=== PATIENT | male | born 1940 | race Caucasian/White ===

== ENCOUNTER 2019-10-21 08:40 | Outpatient (CLI) | payer MEDICARE, SELFPAY ==
--- NOTE | ~2019-10-21 | CT_ITS ---
EXAMINATION: CT chest abdomen pelvis w con DATE: 10/21/2019 09:39 INDICATION: Abnormal weight loss. TECHNIQUE: Computed tomography (CT) of the chest, abdomen, and pelvis was performed with 100 Omnipaqu e 350 intravenous contrast. Automated exposure control and iterative reconstruction technique were em ployed. The dose-length product was 474.09 mGy-cm. COMPARISON: CT abdomen and pelvis 03/12/2018, chest CT 07/23/2012 FINDINGS: CHEST CT: The lungs demonstrate mild atelectasis. Calcified right lung nodules and calcified right hilar lymph nodes are consistent with old granulomatous disease. No pleural effusion. The heart size is normal. T here are coronary artery calcifications. No pericardial effusion. There is mild thoracic spondylosis. There is mild chronic height loss of multiple thoracic vertebral bodies. ABDOMEN/PELVIS CT: There is a 10 mm cyst in the liver. Calcifications in the spleen are consistent with old granulomatou s disease. The gallbladder, pancreas, and adrenal glands are normal. There is cortical thinning of th e kidneys. There is a 4 mm cyst in right kidney. The prostate is moderately enlarged. There are no di lated loops of bowel. The appendix is normal. There is a filter in the infrarenal inferior vena cava. There are no pathologically enlarged lymph nodes. There is no free intraperitoneal fluid. There is l umbar levoscoliosis and severe spondylosis. IMPRESSION: 1. No evidence of malignancy. Reviewed, dictated and finalized at location A.
[2019-10-21 09:22] LABS: Estimated Glomerular Filt Rate > 60
== END 2019-10-21 08:41 | disposition home or self-care (01) ==
PROVIDERS: PCP Family Medicine; Visit Provider Family Medicine
DX: R63.4 Abnormal weight loss (principal); J98.11 Atelectasis
CPT/HCPCS: 36415; 71260; 74177; Q9967

== ENCOUNTER → 2020-10-16 14:07 | Outpatient (CLI) | payer MEDICARE, SELFPAY ==
--- NOTE | ~2020-10-16 | CT_ITS ---
EXAMINATION: CT wrist RT wo con DATE: 10/16/2020 14:36 INDICATION: Scaphoid fracture TECHNIQUE: High resolution computed tomography (CT) of the right wrist was performed without intraven ous contrast. Additional sagittal and coronal reconstructions were performed. Automated exposure cont rol and iterative reconstruction technique were employed. The dose-length product was 79.16 mGy-cm. COMPARISON: None FINDINGS: Alignment is normal. No fracture. There are prominent scattered dystrophic calcifications along the w rist joint and in the soft tissues at the volar aspect of the carpus. There are scattered erosions mo st prominent along the volar margin of the lunate, at the volar-proximal margin of the trapezium and at the head of the second metacarpal which along with the dystrophic calcifications suggesting possib ility of a crystalline deposition diseases such as gout. Severe osteoarthritis at the third metacarpo phalangeal joint and moderate osteoarthritis at the second and fourth metacarpophalangeal joints. Mil d osteoarthritis at the distal radioulnar, midcarpal, triscaphe, first carpometacarpal and first and fifth metacarpophalangeal joints. IMPRESSION: 1. No fractures. 2. Polyarticular osteoarthritis, moderate to severe at the third-fourth metacarpophalangeal joints. 3. Scattered dystrophic calcification is at the wrist and carpus with a few scattered erosions which could be seen in the setting of a crystalline deposition diseases such as gout. Reviewed, dictated and finalized at location A. IMPRESSION: 1. No fractures. 2. Polyarticular osteoarthritis, moderate to severe at the third-fourth metacar pophalangeal joints. 3. Scattered dystrophic calcification is at the wrist and carpus with a few sca ttered erosions which could be seen in the setting of a crystalline deposition diseases such as gout.
== END ==
PROVIDERS: PCP Family Medicine; Visit Provider Orthopaedic Surgery Hand Surgery
DX: M19.031 Primary osteoarthritis, right wrist (principal); M25.831 Other specified joint disorders, right wrist
CPT/HCPCS: 73200

== ENCOUNTER → 2021-02-27 09:23 | Outpatient (CLI) | payer MEDICARE, SELFPAY ==
--- NOTE | ~2021-02-27 | CT_ITS ---
EXAMINATION: CT cervical spine wo con DATE: 02/27/2021 09:49 INDICATION: Neck pain. TECHNIQUE: Computed tomography (CT) of the cervical spine was performed without intravenous contrast. Automated exposure control and iterative reconstruction technique were employed. The dose-length pro duct was 239.06 mGy-cm. COMPARISON: CT cervical spine 08/13/2012 FINDINGS: There are changes of right occipital craniectomy with surgical clips. There is 2 mm retroli sthesis of C4 on C5, C5 on C6, and C6 on C7. Vertebral body heights are normal. There is mildly decre ased disc height at C2-C3, moderately decreased disc height at C3-C4, and severely decreased disc hei ght from C4-C5 through C7-T1 with endplate remodeling. The following disc levels are specifically dis cussed: C2-C3: There is mild bilateral uncovertebral joint osteoarthritis. There is mild bilateral facet join t osteoarthritis. There is no neural foraminal stenosis. There is no central canal stenosis. C3-C4: There is severe right and moderate left uncovertebral joint osteoarthritis. There is severe bi lateral facet joint osteoarthritis. There is mild bilateral neural foraminal stenosis. There is mild central canal stenosis. C4-C5: There is severe bilateral uncovertebral joint osteoarthritis. There is moderate and severe lef t facet joint osteoarthritis. There is moderate bilateral neural foraminal stenosis. There is mild ce ntral canal stenosis. C5-C6: There is severe bilateral uncovertebral joint osteoarthritis. There is moderate bilateral face t joint osteoarthritis. There is moderate right and mild left neural foraminal stenosis. There is mil d central canal stenosis. C6-C7: There is severe bilateral uncovertebral joint osteoarthritis. There is severe bilateral facet joint osteoarthritis. There is mild bilateral neural foraminal stenosis. There is mild central canal stenosis. C7-T1: There is severe bilateral uncovertebral joint osteoarthritis. There is severe bilateral facet joint osteoarthritis. There is mild bilateral neural foraminal stenosis. There is mild central canal stenosis. IMPRESSION: 1. Severe cervical spondylosis, worsened from 08/13/2012. Reviewed, dictated and finalized at location A.
--- NOTE | ~2021-02-27 | CT_ITS ---
EXAMINATION: CT lumbar spine [facility] EXAM DATE: 02/27/2021 09:49 INDICATION: M54.50 - Low back pain, unspecified. TECHNIQUE: Spiral CT of the lumbar spine was performed without contrast. Axial, coronal and sagittal images lumbar spine were reviewed. The dose-length product (DLP) for this examination was 778.25 mG y-cm. The exposure was tailored according to patient size (auto mA exposure control), and iterative reconstruction (ASIR) was used as additional dose reduction technique. There is no prior study for comparison. FINDINGS: IVC filter. Mild to moderate lumbar levoscoliosis. Moderate to severe disc disease at all l umbar levels. Mild compression fracture superior endplate of L1 and L4 which appear chronic. Mild dif fuse loss of other vertebral body height. The vertebral bodies are aligned in the AP dimension. No ev idence of sacral insufficiency fracture. Scattered sigmoid colonic diverticulosis. Level by level evaluation: T12-L1: There is a mild diffuse disc bulge. Facet arthropathy: Mild. Neural foraminal stenosis: No stenosis. Central canal stenosis: No stenosis. L1-L2: There is a mild to moderate diffuse disc bulge. Facet arthropathy: Moderate. Neural foraminal stenosis: Mild to moderate bilateral. Central canal stenosis: Mild. L2-L3: There is a moderate diffuse disc bulge. Facet arthropathy: Moderate. Neural foraminal stenosis: Mild to moderate bilateral. Central canal stenosis: Moderate. L3-L4: There is a moderate diffuse disc bulge. Facet arthropathy: Moderate to severe. Neural foraminal stenosis: Moderate right, mild left. Central canal stenosis: Moderate. L4-L5: There is a mild to moderate diffuse disc bulge. Facet arthropathy: Moderate to severe. Neural foraminal stenosis: Mild to moderate right, mild left. Central canal stenosis: Mild to moderate. L5-S1: There is a mild to moderate diffuse disc bulge. Facet arthropathy: Mild to moderate. Neural foraminal stenosis: Moderate to severe left, mild right. Central canal stenosis: Mild. IMPRESSION: 1. Moderate to severe lumbar spondylosis. 2. Mild to moderate levoscoliosis. 3. Mild L1, L4 chronic appearing compression fractures. Reviewed, dictated and finalized at location B.
== END ==
PROVIDERS: PCP Family Medicine; Visit Provider Family Medicine
DX: M54.50 Low back pain, unspecified (principal); M25.50 Pain in unspecified joint; M47.816 Spondylosis without myelopathy or radiculopathy, lumbar region; M41.86 Other forms of scoliosis, lumbar region; M48.56XA Collapsed vertebra, not elsewhere classified, lumbar region, initial encounter for fracture; M47.812 Spondylosis without myelopathy or radiculopathy, cervical region
CPT/HCPCS: 72125; 72131

== ENCOUNTER 2021-03-13 12:50 | Outpatient (CLI) | payer MEDICARE, SELFPAY ==
--- NOTE | ~2021-03-13 | US_ITS ---
EXAMINATION: US venous doppler LE RT DATE: 03/13/2021 13:30 INDICATION: Right calf pain and swelling. TECHNIQUE: Grayscale ultrasound images without and with compression and Doppler ultrasound images of the right lower extremity veins were obtained. COMPARISON: Ultrasound 03/12/2012 FINDINGS: The visualized portions of right common femoral vein, profunda (deep) femoral vein, peroneal veins, p osterior tibial veins, and greater saphenous vein outflow are patent. There is echogenic peripheral n onocclusive thrombus in right femoral vein and popliteal vein. IMPRESSION: 1. Deep vein thrombosis involving right femoral vein and popliteal vein, which may be chronic. Reviewed, dictated and finalized at location A. [employer]
== END 2021-03-13 12:51 | disposition home or self-care (01) ==
LOC: ANHIMG 12:56
PROVIDERS: PCP Family Medicine; Visit Provider Orthopaedic Surgery
DX: I82.409 Acute embolism and thrombosis of unspecified deep veins of unspecified lower extremity (principal); I82.431 Acute embolism and thrombosis of right popliteal vein; I82.411 Acute embolism and thrombosis of right femoral vein
CPT/HCPCS: 93971

== ENCOUNTER → 2021-08-16 12:21 | Outpatient (CLI) | payer MEDICARE, SELFPAY ==
--- NOTE | ~2021-08-16 | XR_ITS ---
XR ankle LT min 3V DATE: 08/16/2021 13:05 INDICATION: Left ankle effusion TECHNIQUE: 4 views COMPARISON: None FINDINGS: There is generalized soft tissue swelling of the left ankle. There are 2 screws extending anteroposteriorly through the distal tibia. Diffuse osteopenia. There is chronic organized periosteal reaction along the anterior distal tibial shaft. No fracture or dislocation of the ankle or disruption of the ankle mortise is evident. Plantar calcaneal enthesopathy. Arterial calcification of the lower leg and ankle. IMPRESSION: Postoperative change of distal tibia Osteopenia Generalized soft tissue swelling Plantar calcaneal enthesopathy Reviewed, dictated and finalized at location A.
== END ==
PROVIDERS: Visit Provider Family Medicine
DX: M79.89 Other specified soft tissue disorders (principal); M77.32 Calcaneal spur, left foot; M85.862 Other specified disorders of bone density and structure, left lower leg
CPT/HCPCS: 73610

== ENCOUNTER 2021-12-05 13:50 | Outpatient (RCR) | payer MEDICARE, SELFPAY ==
[2021-12-05 14:07] VITALS: BP 124/62; PULSE 60; RESP 20; TEMP 36.4; O2SAT 98
[2021-12-05] MEDS: ACETAMINOPHEN 325 MG TABLET 650 MG PO (14:11)
[2021-12-05] MEDS: FAMOTIDINE 20 MG TABLET PO (14:11)
[2021-12-05] MEDS: diphenhydrAMINE HCl CAP 25 MG CAPSULE PO (14:11)
[2021-12-05] MEDS: BEBTELOVIMAB 175 MG/2 ML VIAL IV PUSH (14:46)
[2021-12-05 15:27] VITALS: BP 120/60; PULSE 70; O2SAT 99
== END 2021-12-05 16:00 ==
LOC: AMCINF 13:50
PROVIDERS: PCP Family Medicine; Visit Provider Internal Medicine Hematology & Oncology
DX: U07.1 COVID-19 (principal); I10 Essential (primary) hypertension; I25.10 Atherosclerotic heart disease of native coronary artery without angina pectoris; J44.9 Chronic obstructive pulmonary disease, unspecified; N18.9 Chronic kidney disease, unspecified
CPT/HCPCS: A9270; M0222; Q0222

== ENCOUNTER 2021-12-23 21:29 | Emergency (ER) | payer MEDICARE, SELFPAY ==
[2021-12-23] VITALS (8 sets, daily range): BP systolic 107–126; BP diastolic 59–68; PULSE 65–85; RESP 15–22; TEMP 37.2; O2SAT 98–100
--- NOTE | ~2021-12-23 | XR_ITS ---
EXAMINATION: XR chest 1V portable DATE: 12/23/2021 22:53 INDICATION: Shortness of breath. Cough. TECHNIQUE: A single frontal view of the chest was obtained. COMPARISON: Chest 2 views 05/21/19, chest CT 10/21/2019 FINDINGS: There is new mild elevation of left hemidiaphragm. There are interstitial opacities in the lower lung zones. No pleural effusion or pneumothorax. The heart size is normal. IMPRESSION: 1. Stable interstitial opacities in the lower lung zones, likely mild chronic interstitial lung disea se. Reviewed, dictated and finalized at location A. IMPRESSION: 1. Stable interstitial opacities in the lower lung zones, likely mild chronic i nterstitial lung disease.
[2021-12-23 21:53] LABS: Basophils Percent Auto 0.4 % (0.2-1.2); Eosinophils Absolute Auto 0.3 K/mm3 (0-0.3); Eosinophils Percent Auto 3.7 % (0-4.4); Hematocrit 36.5 % (42.0-52.0); Hemoglobin 11.4 g/dL (14.0-18.0); Immature Granulocyte Absolute 0.02 K/mm3 (0.00-0.031); Immature Granulocyte Percent A 0.2 % (0-0.5); Lymphocytes Absolute Auto 1.22 K/mm3 (0.9-3.2); Lymphocytes Percent Auto 13.6 % (18.3-44.2); Mean Corpuscular HGB Conc 31.2 g/dl (32-36); Mean Corpuscular Hemoglobin 29.7 pg (26-34); Mean Corpuscular Volume 95.1 fl (80-100); Mean Platelet Volume 11.7 fl (7.4-10.4); Monocytes Percent Auto 10.9 % (2.6-8.5); Neutrophils Absolute Auto 6.4 K/mm3 (1.3-6.7); Neutrophils Percent Auto 71.2 % (45.5-73.1); Platelet Count Result 170 k/mm3 (150-375); Red Blood Count 3.84 M/mm3 (4.6-6.20); Red Cell Distribution Width 14.3 % (11.5-14.5)
[2021-12-23 22:02] LABS: Alanine Aminotransferase 17 U/L (6-50); Albumin Level 4.2 g/dL (3.5-5.1); Alkaline Phosphatase 81 U/L (38-126); Anion Gap 8 mmol/L (8-16); Aspartate Amino Transferase 38 U/L (17-59); Bilirubin,Total 1.5 mg/dL (0.2-1.3); Blood Urea Nitrogen 20 mg/dL (9-20); Calcium 9.1 mg/dL (8.4-10.2); Carbon Dioxide 29 mmol/L (22-30); Chloride 98 mmol/L (98-107); Estimated CRCL calculation 48 ml/min; Estimated Glomerular Filt Rate > 60; Glucose 98 mg/dL (65-110); Potassium 4.9 mmol/L (3.4-5.0); Sodium 135 mmol/L (137-145)
--- NOTE | 2021-12-23 22:55 | PC.NURSE ---
Pt reports diagnosed with COVID 12/03, reports was feeling better except for a sore throat. Pt reports today it feels like he has phlegm in throat he cannot cough out. Pt is A/O x 4, no distress, skin pwd
--- NOTE | 2021-12-23 23:41 | ED.URI ---
HPI - URI/Sore Throat General Chief Complaint: Upper Respiratory Infection Stated Complaint: SOB, congestion Time Seen by Provider: 12/23/21 22:45 History of Present Illness HPI Narrative: 81-year-old male presents the emergency room complaints of a sore throat that he has had for 2 days. Patient states he feels like he is and is unable to clear his throat. Denies productive cough shortness of breath difficulty breathing or chest pain. Patient denies fevers. Patient states he was recently diagnosed with COVID. Was seen in his primary care's office earlier this week and was given a course of amoxicillin. Patient states he is not getting any better. Related Data Home Medications Medication Instructions Recorded Confirmed atorvastatin 80 mg tablet 80 mg PO DAILY 04/21/19 12/05/21 isosorbide mononitrate 60 mg 60 mg PO DAILY 04/21/19 12/05/21 tablet,extended release 24 hr [id number]-SR 200 mcg-vit K 15 1 tablet PO DAILY 04/21/19 12/05/21 mcg-lycope 150 uip-hkdyri-ugnr tablet (Ocuvite Eye Plus Multi) potassium chloride 20 mEq See Rx Instructions .Route 05/21/19 12/05/21 tablet,extended release .COMPLEX PRN retention metoprolol tartrate 25 mg tablet 12.5 mg PO BID 05/24/19 12/05/21 diphenhydramine 25 1 tablet PO QHS PRN Sleep 08/16/21 12/05/21 mg-acetaminophen 500 mg tablet (Tylenol PM Extra Strength) Allergies Allergy/AdvReac Type Severity Reaction Status Date / Time anesthesia--cholinester AdvReac Severe Unknown Uncoded 12/14/21 09:41 deficiency Review of Systems Review of Systems: CONSTITUTIONAL: Denies fever, chills, or sweats. EYES: Denies visual changes, redness, or discharge. ENT: Reports sore throat CARDIOVASCULAR: Denies chest pain, palpitations, or edema. RESPIRATORY: Denies cough or dyspnea. GASTROINTESTINAL: Denies abdominal pain, nausea, vomiting, or diarrhea. GENITOURINARY: Denies dysuria or hematuria. SKIN: Denies rash or itching. MUSCULOSKELETAL: Denies back pain, joint pain, or myalgia. NEUROLOGIC: Denies headache, numbness, dizziness, or weakness. PSYCHIATRIC: Denies anxiety or depression. PMFSH Past Medical History Medical History Anemia Anemia of chronic disease Ankle fracture, left Arthritis Atherosclerotic heart disease of [place] coronary artery with other forms of angina pectoris Atrial fibrillation AVM (arteriovenous malformation) brain B12 deficiency (Unknown) Basal cell carcinoma (BCC) of face Bilateral cataracts Brown recluse spider bite Right lower extremity CAD (coronary artery disease) History of mid Left anterior descending stent in the past, RCA stent in 2018. Cholinesterase deficiency Chronic back pain Chronic combined systolic and diastolic congestive heart failure Chronic interstitial lung disease COPD (chronic obstructive pulmonary disease) Depression Diverticulosis DVT (deep venous thrombosis) Erectile dysfunction Erectile dysfunction Esophageal dilatation GERD (gastroesophageal reflux disease) GI bleed Hiatal hernia HTN (hypertension) Hyperlipidemia Iron deficiency anemia due to chronic blood loss Ischemic cardiomyopathy Lymphedema DARIUSZ (obstructive sleep apnea) Phlebitis Physical deconditioning Post-phlebitic dermatosis of both lower extremities Psychomotor agitation PUD (peptic ulcer disease) Right knee DJD Surgical History Surgical History H/O bilateral cataract extraction H/O craniotomy AV malformation repair H/O repair of rotator cuff Bilateral H/O skin graft IVleft anterior foot History of esophagogastroduodenoscopy (EGD) History of open reduction and internal fixation (ORIF) procedure left ankle Hx of cardiac cath Hx of tonsillectomy S/P IVC filter S/P right knee arthroscopy Status post right knee replacement Stented coronary artery X2 Family History Family History (Reviewed 12/23/21 @ 23:43 by Donte Park, A
[2021-12-23] MEDS: BELLADONNA ALK/PHENOB ELIX 10 ML, MAG HYDROX/ALUMINUM HYD/SIMETH 30 ML, LIDOCAINE HCL 2... PO (23:51)
[2021-12-23] MEDS: DEXAMETHASONE SOD PHOS INJ 4 MG/ML VIAL IV PUSH (23:53)
== END 2021-12-24 00:04 | disposition home or self-care (01) ==
PROVIDERS: Emergency Provider Nurse Practitioner Family; PCP Family Medicine
DX: B08.5 Enteroviral vesicular pharyngitis (principal); Z87.891 Personal history of nicotine dependence; D64.9 Anemia, unspecified; M19.90 Unspecified osteoarthritis, unspecified site; I48.91 Unspecified atrial fibrillation; I25.10 Atherosclerotic heart disease of native coronary artery without angina pectoris; J44.9 Chronic obstructive pulmonary disease, unspecified; K57.90 Diverticulosis of intestine, part unspecified, without perforation or abscess without bleeding; Z86.718 Personal history of other venous thrombosis and embolism; K21.9 Gastro-esophageal reflux disease without esophagitis; I10 Essential (primary) hypertension; Z86.16 Personal history of COVID-19
CPT/HCPCS: 36415; 71045; 80053; 85025; 96374; 99284; A9270; J1100

== ENCOUNTER 2022-07-18 10:36 | Emergency (ER) | payer MEDICARE, SELFPAY ==
--- NOTE | ~2022-07-18 | CT_ITS ---
Non-contrast Head CT History: Head injury COMPARISON: 03/11/2007 Technique: Axial non-contrast imaging of the brain was performed. Dose reduction technique was used on this scan by utilizing automated exposure control and iterative reconstruction technique. The dose -length product (DLP) was 605.33 mGy-cm. Findings: There is no evidence of intracranial hemorrhage, mass lesion, or acute infarct. Brain par enchyma appears normal. The ventricles and subarachnoid spaces are normal in size. Stable right alex etal craniotomy/chronic changes. Stable metallic densities in the region of the right falx tentorium. . The visualized paranasal sinuses and mastoid air cells are clear. Impression: No acute abnormality. Stable presumed postsurgical and/or posttraumatic changes, predominantly in the right parietal region . Reviewed, dictated and finalized at [facility]. Impression: No acute abnormality. Stable presumed postsurgical and/or posttraumatic changes, predominantly in the right parietal region.
--- NOTE | ~2022-07-18 | XR_ITS ---
Clinical Indication: Injury PA and lateral views of the chest: Comparison: 12/23/2021 Findings: Possible mild central pulmonary venous congestive change. Probable minimal left basilar sca rring, unchanged. No acute consolidation evident. Cardiomediastinal silhouette is within normal limi ts. Bones and soft tissues are unremarkable. Impression: Probable mild central congestive changes and chronic left basilar scarring. Reviewed, dictated and finalized at location . Impression: Probable mild central congestive changes and chronic left basilar scarring.
--- NOTE | ~2022-07-18 | XR_ITS ---
Left Shoulder Technique: AP and scapular Y views were obtained. Clinical History: Pain Findings: No acute fracture seen. There is widening of the acromio clavicular distance, stable as com pared to prior chest x-ray dated 12/23/2021. There is minimal glenohumeral joint degenerative change. Soft tissues are unremarkable. Impression: Chronic widening of the cortical clavicular distance. This may be postoperative in nature or related to remote trauma. Minimal degenerative change of the glenohumeral joint. Reviewed, dictated and finalized at location . Impression: Chronic widening of the cortical clavicular distance. This may be postoperative in nature or related to remote trauma. Minimal degenerative change of the glenohumeral joint.
--- NOTE | 2022-07-18 10:52 | ED.HA ---
HPI - Headache General Chief Complaint: Headache Stated Complaint: fall, lightheaded Time Seen by Provider: 07/18/22 10:51 Source: patient Mode of arrival: ambulatory Limitations: no limitations History of Present Illness HPI Narrative: Patient is an 82-year-old male with a history of hypertension, coronary artery disease, sick sinus syndrome, paroxysmal atrial fibrillation on chronic anticoagulation, who is presenting to the emergency department for evaluation of mild headache following a ground-level fall 5 days ago. Patient states that he lost his balance while setting down a heavy box that he was moving outside of his camper. Patient states that he fell forward, striking the right side of his head on the box and then was able to roll to the ground. Patient denies loss of conscious. Patient reports very mild headache for which she has not taken any medication for any significant amount of bruising around his right eye. No associated focal weakness or numbness. No facial droop. Patient has not noticed any speech changes but patient's believes he is not speaking clearly. Patient denies any vision changes, nausea, vomiting. Patient does report some mild left shoulder pain following the fall without bruising, redness. He has been able to fully range the left shoulder. Patient has been compliant with his anticoagulation. Denies fever, chills, chest or abdominal pain. Related Data Home Medications Medication Instructions Recorded Confirmed isosorbide mononitrate 60 mg 60 mg PO DAILY 04/21/19 12/28/21 tablet,extended release 24 hr potassium chloride 20 mEq See Rx Instructions .Route 05/21/19 12/28/21 tablet,extended release .COMPLEX PRN retention metoprolol tartrate 25 mg tablet 12.5 mg PO BID 05/24/19 12/28/21 diphenhydramine 25 1 tablet PO QHS PRN Sleep 08/16/21 12/28/21 mg-acetaminophen 500 mg tablet (Tylenol PM Extra Strength) Allergies Allergy/AdvReac Type Severity Reaction Status Date / Time anesthesia--cholinester AdvReac Severe Unknown Uncoded 05/30/22 14:22 deficiency Review of Systems Review of Systems: CONSTITUTIONAL: Denies fever, chills, or sweats. EYES: Denies visual changes, redness, or discharge. ENT: Denies rhinorrhea, congestion, sore throat, or otalgia. CARDIOVASCULAR: Denies chest pain, palpitations, or edema. RESPIRATORY: Denies cough or dyspnea. GASTROINTESTINAL: Denies abdominal pain, nausea, vomiting, or diarrhea. GENITOURINARY: Denies dysuria or hematuria. SKIN: Denies rash or itching. MUSCULOSKELETAL: Denies back pain, joint pain, or myalgia. NEUROLOGIC: Patient reports mild right-sided headache pain, denies focal numbness or weakness, denies speech changes PMFSH Past Medical History Medical History Anemia Anemia of chronic disease Ankle fracture, left Arthritis Atherosclerotic heart disease of [place] coronary artery with other forms of angina pectoris Atrial fibrillation AVM (arteriovenous malformation) brain B12 deficiency (Unknown) Basal cell carcinoma (BCC) of face Bilateral cataracts Brown recluse spider bite Right lower extremity CAD (coronary artery disease) History of mid Left anterior descending stent in the past, RCA stent in 2018. Cholinesterase deficiency Chronic back pain Chronic combined systolic and diastolic congestive heart failure Chronic interstitial lung disease COPD (chronic obstructive pulmonary disease) Depression Diverticulosis DVT (deep venous thrombosis) Erectile dysfunction Erectile dysfunction Esophageal dilatation GERD (gastroesophageal reflux disease) GI bleed Hiatal hernia HTN (hypertension) Hyperlipidemia Iron deficiency anemia due to chronic blood loss Ischemic cardiomyopathy Lymphedema DARIUSZ (obstructive sleep apnea) Phlebitis Physical deconditioning Post-phlebitic dermatosis of both lower extremities Psychomotor agitation PUD (peptic ulcer disease) Right knee DJD Surg
[2022-07-18 10:57] VITALS: BP 126/66; PULSE 60; RESP 16; TEMP 36.8; O2SAT 100
--- NOTE | 2022-07-18 11:12 | ECG_ITS ---
Measurements Intervals [place] Rate: 53 P: NE: 0 QRS: -71 QRSD: 126 T: -7 QT: 479 QTc: 454 Interpretive Statements ATRIAL FLUTTER/TACHYCARDIA WITH SLOW VENTRICULAR RESPONSE RIGHT BUNDLE BRANCH BLOCK CONSIDER ANTERIOR INFARCT, AGE INDETERMINATE INFERIOR INFARCT, AGE INDETERMINATE BASELINE ARTIFACT- I, II ABNORMAL ECG COMPARED TO ECG 05/22/2019 03:50:00 ATRIAL FLUTTER/TACHYCARDIA NOW PRESENT MYOCARDIAL INFARCT FINDING NOW PRESENT Electronically Signed On 07-18-2022 12:31:32 CDT by Colby Nova D.O.
[2022-07-18] MEDS: SODIUM CHLORIDE 0.9% IV 500 ML 999 ML IV CONT (11:52)
[2022-07-18] MEDS: TETANUS,DIPHTHERIA,AC PERTUSSIS ADULT (0.5 ML) BOOSTRIX IM (11:53)
[2022-07-18 12:04] VITALS: BP 120/64; PULSE 58; RESP 16; O2SAT 100
[2022-07-18 12:07] LABS: Basophils Percent Auto 0.6 % (0.2-1.2); Eosinophils Absolute Auto 0.4 K/mm3 (0-0.3); Eosinophils Percent Auto 6.8 % (0-4.4); Hemoglobin 11.5 g/dL (14.0-18.0); Immature Granulocyte Absolute 0.01 K/mm3 (0.00-0.031); Immature Granulocyte Percent A 0.2 % (0-0.5); Lymphocytes Absolute Auto 1.17 K/mm3 (0.9-3.2); Lymphocytes Percent Auto 21.5 % (18.3-44.2); Mean Corpuscular HGB Conc 31.1 g/dl (32-36); Mean Corpuscular Hemoglobin 29.3 pg (26-34); Mean Corpuscular Volume 94.1 fl (80-100); Mean Platelet Volume 11.4 fl (7.4-10.4); Monocytes Absolute Auto 0.7 K/mm3 (0.1-0.6); Monocytes Percent Auto 11.9 % (2.6-8.5); Neutrophils Absolute Auto 3.2 K/mm3 (1.3-6.7); Platelet Count Result 180 k/mm3 (150-375); Red Blood Count 3.93 M/mm3 (4.6-6.20); Red Cell Distribution Width 14.4 % (11.5-14.5); White Blood Count 5.5 K/mm3 (4.5-10.0)
[2022-07-18 12:10] LABS: INR 2.4; Prothrombin Time 25.7 Seconds (11.1-14.7)
[2022-07-18 12:11] LABS: Partial Thromboplastin Time 49.4 SECONDS (22.3-36.8)
[2022-07-18 12:16] LABS: Anion Gap 5 mmol/L (8-16); Blood Urea Nitrogen 14 mg/dL (9-20); Calcium 9.1 mg/dL (8.4-10.2); Carbon Dioxide 31 mmol/L (22-30); Chloride 99 mmol/L (98-107); Estimated CRCL calculation 49 ml/min; Estimated Glomerular Filt Rate > 60; Glucose 86 mg/dL (65-110); Potassium 4.1 mmol/L (3.4-5.0); Sodium 135 mmol/L (137-145)
[2022-07-18 12:27] LABS: Troponin I 0.019 ng/mL (0.000-0.034)
[2022-07-18 13:02] VITALS: BP 110/84; PULSE 64; RESP 16; O2SAT 97
== END 2022-07-18 13:09 | disposition home or self-care (01) ==
PROVIDERS: Emergency Provider Emergency Medicine; PCP Family Medicine
DX: G44.309 Post-traumatic headache, unspecified, not intractable (principal); F07.81 Postconcussional syndrome; S05.11XA Contusion of eyeball and orbital tissues, right eye, initial encounter; Z23 Encounter for immunization; I48.0 Paroxysmal atrial fibrillation; I25.118 Atherosclerotic heart disease of native coronary artery with other forms of angina pectoris; I11.0 Hypertensive heart disease with heart failure; I50.42 Chronic combined systolic (congestive) and diastolic (congestive) heart failure; I25.5 Ischemic cardiomyopathy; I49.5 Sick sinus syndrome; D63.8 Anemia in other chronic diseases classified elsewhere; E53.8 Deficiency of other specified B group vitamins; J44.9 Chronic obstructive pulmonary disease, unspecified; K21.9 Gastro-esophageal reflux disease without esophagitis; E78.5 Hyperlipidemia, unspecified; G47.33 Obstructive sleep apnea (adult) (pediatric); M17.11 Unilateral primary osteoarthritis, right knee; Z95.5 Presence of coronary angioplasty implant and graft; Z96.651 Presence of right artificial knee joint; Z85.828 Personal history of other malignant neoplasm of skin; Z86.718 Personal history of other venous thrombosis and embolism; Z87.11 Personal history of peptic ulcer disease; Z87.891 Personal history of nicotine dependence; Z98.42 Cataract extraction status, left eye; Z98.41 Cataract extraction status, right eye; Z79.01 Long term (current) use of anticoagulants; I48.92 Unspecified atrial flutter; R00.0 Tachycardia, unspecified; R94.31 Abnormal electrocardiogram [ECG] [EKG]; W18.39XA Other fall on same level, initial encounter
CPT/HCPCS: 36415; 70450; 71046; 73030; 80048; 84484; 85025; 85610; 85730; 90471; 90715; 93005; 96360; 99284; J7040

== ENCOUNTER 2023-01-08 07:59 | Observation (INO) | payer MEDICARE, SELFPAY ==
[2023-01-08] VITALS (23 sets, daily range): BP systolic 105–142; BP diastolic 61–80; PULSE 34–61; RESP 9–19; TEMP 36.2–36.9; O2SAT 95–100; BMI 24.7
--- NOTE | ~2023-01-08 | XR_ITS ---
EXAMINATION: XR chest 1V portable DATE: 01/08/2023 08:21 INDICATION: Bradycardia. Dizziness. TECHNIQUE: A single frontal view of the chest was obtained. COMPARISON: Chest 2 views 07/18/2022, chest CT 10/21/2019 FINDINGS: There are chronic interstitial opacities in the lower lung zones. No pleural effusion or pn eumothorax. The heart size is normal. IMPRESSION: 1. Mild chronic interstitial lung disease. Reviewed, dictated and finalized at location A.
--- NOTE | 2023-01-08 08:03 | ECG_ITS ---
Measurements Intervals [place] Rate: 77 P: ND: 0 QRS: -79 QRSD: 152 T: 45 QT: 436 QTc: 495 Interpretive Statements JUNCTIONAL RHYTHM VENTICULAR COUPLET AND FREQUENT VENTRICULAR PREMATURE COMPLEXES RIGHT BUNDLE BRANCH BLOCK LEFT ANTERIOR FASCICULAR BLOCK ABNORMAL ECG COMPARED TO ECG 07/18/2022 12:01:15 JUNCTIONAL RHYTHN NOW PRESENT Electronically Signed On 01-08-2023 12:43:57 CDT by Colby Nova D.O.
--- NOTE | 2023-01-08 08:10 | ED.ARRPALP ---
HPI - Arrhythmia/Palpitations General Chief Complaint: Arrhythmia/Palpitations Stated Complaint: IRREGULAR HEART RATE Time Seen by Provider: 01/08/23 08:00 History of Present Illness HPI narrative: This is an 82-year-old male, with history of A-fib on rivaroxaban, who presents emergency department from cardiac rehab for an episode of symptomatic bradycardia. The patient states he was riding the bike, when he felt palpitations and became lightheaded. On the monitor at the time, the patient had multiple long pauses with slowest heart rate in the 30s. He was brought to the emergency room for evaluation. Patient continues to complain of lightheadedness but denies chest pain. He has no other complaints at this time. He states he did not take his medications this morning. He states his Imdur was increased in dose 1 week ago. Related Data Home Medications Medication Instructions Recorded Confirmed isosorbide mononitrate 60 mg 60 mg PO DAILY 04/21/19 01/08/23 tablet,extended release 24 hr diphenhydramine 25 1 tablet PO QHS PRN Sleep 08/16/21 01/08/23 mg-acetaminophen 500 mg tablet (Tylenol PM Extra Strength) B Complex 1 tablet BYMOUTH DAILY 12/12/22 01/08/23 PreserVision AREDS 2 tab-cap BYMOUTH DAILY 12/12/22 01/08/23 cholecalciferol (vitamin D3) 50 50 mcg PO DAILY 12/12/22 01/08/23 mcg (2,000 unit) capsule (Vitamin D3) furosemide 20 mg tablet 20 mg PO DAILY 01/08/23 01/08/23 rivaroxaban 20 mg tablet (Xarelto) 20 mg PO QAM 01/08/23 01/08/23 triamcinolone acetonide 0.1 % 1 applic topical BID PRN dryness 01/08/23 01/08/23 topical cream Allergies Allergy/AdvReac Type Severity Reaction Status Date / Time anesthesia--cholinester AdvReac Severe Unknown Uncoded 01/08/23 13:35 deficiency Review of Systems Review of Systems: CONSTITUTIONAL: Denies fever, chills, or sweats. CARDIOVASCULAR: Palpitations denies chest pain, or edema. RESPIRATORY: Denies cough or dyspnea. GASTROINTESTINAL: Denies abdominal pain, nausea, vomiting, or diarrhea. GENITOURINARY: Denies dysuria or hematuria. SKIN: Denies rash or itching. MUSCULOSKELETAL: Denies back pain, joint pain, or myalgia. NEUROLOGIC: Lightheadedness denies headache, numbness, or weakness. PSYCHIATRIC: Denies anxiety or depression. 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 B12 deficiency (Unknown) Basal cell carcinoma (BCC) of face Bilateral cataracts CAD (coronary artery disease) History of mid Left anterior descending stent in the past, RCA stent in 2018. Cholinesterase deficiency Chronic back pain Chronic combined systolic and diastolic congestive heart failure Chronic interstitial lung disease COPD (chronic obstructive pulmonary disease) Depression Diverticulosis DVT (deep venous thrombosis) Erectile dysfunction Esophageal dilatation GERD (gastroesophageal reflux disease) GI bleed Hiatal hernia HTN (hypertension) Hyperlipidemia Ischemic cardiomyopathy Lymphedema DARIUSZ (obstructive sleep apnea) Physical deconditioning PUD (peptic ulcer disease) Right knee DJD Surgical History Surgical History (Updated 01/08/23 @ 18:53 by Lili Neumann, HOSPITAL CARRIER) H/O bilateral cataract extraction H/O craniotomy AV malformation repair H/O repair of rotator cuff Bilateral H/O skin graft IVleft anterior foot History of esophagogastroduodenoscopy (EGD) History of open reduction and internal fixation (ORIF) procedure left ankle History of radiofrequency ablation (RFA) procedure for cardiac arrhythmia Hx of cardiac cath Hx of tonsillectomy S/P IVC filter S/P right knee arthroscopy Status post right knee replacement Stented coronary artery X2 Family Hist
[2023-01-08 08:42] LABS: Basophils Percent Auto 0.7 % (0.2-1.2); Eosinophils Absolute Auto 0.3 K/mm3 (0-0.3); Eosinophils Percent Auto 5.7 % (0-4.4); Hematocrit 41.3 % (42.0-52.0); Hemoglobin 13.2 g/dL (14.0-18.0); Immature Granulocyte Absolute 0.01 K/mm3 (0.00-0.031); Immature Granulocyte Percent A 0.2 % (0-0.5); Lymphocytes Absolute Auto 0.88 K/mm3 (0.9-3.2); Lymphocytes Percent Auto 19.9 % (18.3-44.2); Mean Corpuscular Hemoglobin 30.8 pg (26-34); Mean Corpuscular Volume 96.3 fl (80-100); Monocytes Absolute Auto 0.6 K/mm3 (0.1-0.6); Monocytes Percent Auto 12.4 % (2.6-8.5); Neutrophils Absolute Auto 2.7 K/mm3 (1.3-6.7); Neutrophils Percent Auto 61.1 % (45.5-73.1); Platelet Count Result 171 k/mm3 (150-375); Red Blood Count 4.29 M/mm3 (4.6-6.20); Red Cell Distribution Width 13.9 % (11.5-14.5); White Blood Count 4.4 K/mm3 (4.5-10.0)
[2023-01-08] MEDS: CALCIUM GLUCONATE 1,000 MG/10 ML VIAL 1000 MG IV PUSH (08:53)
[2023-01-08 08:54] LABS: Alanine Aminotransferase 27 U/L (6-50); Albumin Level 4.2 g/dL (3.5-5.1); Alkaline Phosphatase 79 U/L (38-126); Anion Gap 7 mmol/L (8-16); Aspartate Amino Transferase 38 U/L (17-59); Bilirubin,Total 0.7 mg/dL (0.2-1.3); Blood Urea Nitrogen 21 mg/dL (9-20); Calcium 9.3 mg/dL (8.4-10.2); Carbon Dioxide 32 mmol/L (22-30); Chloride 99 mmol/L (98-107); Estimated CRCL calculation 40 ml/min; Estimated Glomerular Filt Rate 58; Glucose 105 mg/dL (65-110); Potassium 3.9 mmol/L (3.4-5.0); Sodium 138 mmol/L (137-145)
[2023-01-08 08:55] LABS: Magnesium 2.1 mg/dL (1.6-2.3)
[2023-01-08 09:02] LABS: INR 1.3; Partial Thromboplastin Time 31.4 SECONDS (22.3-36.8); Prothrombin Time 17.3 Seconds (11.1-14.7)
[2023-01-08 09:11] LABS: NT Pro B Type Natriuretic Pept 3240 pg/mL (19.9-100); Troponin I 0.041 ng/mL (0.000-0.034)
[2023-01-08] MEDS: SODIUM CHLORIDE 0.9% IV 1,000 ML 30 ML IV CONT (10:19)
[2023-01-08 10:28] LABS: Appearance Urine Clear (Clear); Bilirubin Urine Negative (Negative); Blood Urine Negative (Negative); Color Urine Yellow (Yellow); Glucose Urine UA Negative (Negative); Ketones Urine Negative (Negative); Leukocyte Esterase Ur Negative LEU/UL (Negative); Nitrate Urine Negative (Negative); Protein Urine Negative (Negative); Specific Grav Ur 1.021 (1.001-1.035); pH Urine 7.5 (5.0-9.0)
[2023-01-08 10:37] LABS: Add Urine Microscopic? NO
[2023-01-08 11:57] LABS: Troponin I 0.041 ng/mL (0.000-0.034)
--- NOTE | 2023-01-08 12:16 | PC.NURSE ---
ordered lunch tray for patient at this time
--- NOTE | 2023-01-08 13:10 | ADMGEN ---
This patient, Brandon Mcfarlane, was admitted to IMU Room 200-01 @ 1235. Patient/family oriented to hospital policies and general routines including ID bracelet, bed and alarms, visiting hours, pain management, procedures, bathroom and other care routines, personal items, smoking policy, room service/diet, and visiting hours. Information on how to activate the Rapid Response Team has been discussed. Patient/Family are encouraged to report perceived risks to care and to ask questions if they do not understand what they are told or what they should do.
--- NOTE | 2023-01-08 14:19 | PM.CNCAR ---
Assessment and Plan Assessment and plan (1) Bradycardia: Code(s): R00.1 - Bradycardia, unspecified Status: Acute (2) Atrial fibrillation: Code(s): I48.91 - Unspecified atrial fibrillation Status: Chronic (3) RBBB: Code(s): I45.10 - Unspecified right bundle-branch block Status: Acute (4) Bifascicular block: Code(s): I45.2 - Bifascicular block Status: Acute Plan We are consulted for bradycardia. Patient was at cardiac rehab today, and while on the bike (after exercising on the bike for about 10 minutes), he felt tired, lightheaded, felt like he was about to pass out. Noted to have slow atrial fibrillation with PVCs with heart rates in the 35-40s. Rapid response called, and patient was sent to the ER. The EKG in the ER upon my personal interpretation shows atrial fibrillation, RBBB, LAFB, frequent PVCs but no bradycardia, pauses or other significant findings. At the time of my evaluation, patient states he is feeling okay. Not having any presyncopal episodes. Heart rate in the 60s at the time of my evaluation. Review of the strips from cardiac rehab show atrial fibrillation, frequent PVCs, NSVT consisting of 3 beats, however, no significant pauses. At this time, patient does not need urgent/emergent pacemaker. It could be that his symptoms while in cardiac rehab were from frequent PVCs. 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 Not on beta leroy therapy due to rate controlled AFIB and reported intermittent bradycardia in the past. Given his chronic conduction disease, it is very likely that patient may need a pacemaker at some point in the future. At this time, we will monitor on telemetry. Check TSH level. If patient does not have any significant bradyarrhythmias overnight, it may be reasonable to discharge patient with a 30 day event monitor. If he does have significant bradyarrhythmias overnight, then would consider doing permanent pacemaker tomorrow afternoon (which would be with Dr. Moore). Patient to be NPO at midnight just in case. Luckily last dose of Xarelto was 01/07/2023 in the AM. Continue to hold Xarelto for now in case he does need pacemaker. History of Present Illness History of Present Illness Consult date/time: 01/08/23 14:19 Requesting physician: Kevin Morelos MD Consult reason: Other (Bradycardia ) Reason For Visit: symptomatic bradycardia Narrative: We are consulted for bradycardia. This is a pleasant 82 year old male who follows with Dr. Dewitt. Last seen by Dr. Dewitt on 12/31/2022. He has coronary artery disease s/p LAD PCI, atrial fibrillation s/p cardioversion and ablation in the past, on Xarelto for anticoagulation, history of DVT. He does have chronic conduction disease with RBBB, LAFB, first-degree AVB. Not on beta leroy therapy due to reported intermittent bradycardia in the past. Has had a history of syncope in the past but nothing recent. Patient was at cardiac rehab today, and while on the bike (after exercising on the bike for about 10 minutes), he felt tired, lightheaded, felt like he was about to pass out. Noted to have slow atrial fibrillation with PVCs with heart rates in the 35-40s. Rapid response called, and patient was sent to the ER. The EKG in the ER upon my personal interpretation shows atrial fibrillation, RBBB, LAFB, frequent PVCs but no bradycardia, pauses or other significant findings. At the time of my evaluation, patient states he is feeling okay. Not having any presyncopal episodes. Heart rate in the 60s at the time of my evaluation. Review of the strips from cardiac rehab show atrial fibrillation, frequent PVCs, NSVT consisting of 3 beats, however, no significant pauses. Transthoracic echocardiogram done in our office on 01/01/2023 shows: Normal LV size, moderate-severe LVH, LVEF 60-65%, normal RV size and function, mild biatrial enlargement, mild pulmonary hypertension. His last event
[2023-01-08 17:02] LABS: Troponin I 0.045 ng/mL (0.000-0.034)
--- NOTE | 2023-01-08 18:37 | PM.IMHP ---
H&P: HPI History of Present Illness Date/Time: 01/08/23 18:37 Chief Complaint: Lightheaded Narrative: 82 y/o M with PMH of CHF, A-Fib on Xarelto, CAD, HTN, and DARIUSZ presents here with symptomatic bradycardia. Patient currently attending cardiac rehabilitation. There today using recumbent bike when 10 minutes into exercise he began to experience bilateral lower extremity weakness and lightheadedness. Patient's HR was being monitored and showed rate of 36. Given glass of water by staff and attempted to rest, interventions were not successful and patient remained bradycardiac. No previous episodes of similar symptoms. Exertional dyspnea at baseline and present at time of event, no worse than usual per patient. +Mild chest heaviness that has resolved. No nausea, vomiting, or syncope. Recent change in medication - Imdur increased 1 week ago. Currently A/Ox4. 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 B12 deficiency (Unknown) Basal cell carcinoma (BCC) of face Bilateral cataracts CAD (coronary artery disease) History of mid Left anterior descending stent in the past, RCA stent in 2018. Cholinesterase deficiency Chronic back pain Chronic combined systolic and diastolic congestive heart failure Chronic interstitial lung disease COPD (chronic obstructive pulmonary disease) Depression Diverticulosis DVT (deep venous thrombosis) Erectile dysfunction Esophageal dilatation GERD (gastroesophageal reflux disease) GI bleed Hiatal hernia HTN (hypertension) Hyperlipidemia Ischemic cardiomyopathy Lymphedema DARIUSZ (obstructive sleep apnea) Physical deconditioning PUD (peptic ulcer disease) Right knee DJD Surgical History Surgical History (Updated 01/08/23 @ 18:53 by Lili Neumann APRN) H/O bilateral cataract extraction H/O craniotomy AV malformation repair H/O repair of rotator cuff Bilateral H/O skin graft IVleft anterior foot History of esophagogastroduodenoscopy (EGD) History of open reduction and internal fixation (ORIF) procedure left ankle History of radiofrequency ablation (RFA) procedure for cardiac arrhythmia Hx of cardiac cath Hx of tonsillectomy S/P IVC filter S/P right knee arthroscopy Status post right knee replacement Stented coronary artery X2 Family History Family History (Updated 01/08/23 @ 18:53 by Lili Neumann APRN) Mother Patient's mother is Pneumonia Father Cerebrovascular accident Heart disease Sibling Cancer Cerebrovascular accident Heart disease Other Family history of chronic obstructive pulmonary disease Social History Social History (Updated 01/08/23 @ 18:54 by Lili Neumann APRN) Social History: He is remarried (previously ), lives at home with . He has a son and a daughter. 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 No current assistive devices used. Smoking packs per day: 1 Smoking cigarettes per day: 20.0 Years smoked: 50 Smoking pack-years: 50.00 Smoking status: Former smoker Tobacco type: cigarettes Smokeless tobacco user: chewing tobacco Smoking end date: 12/03/02 Alcohol intake: never Drinks per week: 0 Substance use: never Substance use type: does not use Lack of Transportation: No Lack of Food: Never True Current Housing: I Have Housing Concerned About Future Housing: No Difficulty Paying Gas/Electric Bills: No Difficulty Paying for Meds: No Currently Unemployed: No Education: High School Diploma/GED Difficulty w/ Childcare or Family Care: No Living arrangem
[2023-01-09] VITALS (8 sets, daily range): BP systolic 100–130; BP diastolic 63–78; PULSE 50–64; RESP 16–20; TEMP 35.9–36.7; O2SAT 95–100
[2023-01-09 04:52] LABS: Basophils Percent Auto 0.4 % (0.2-1.2); Eosinophils Absolute Auto 0.3 K/mm3 (0-0.3); Eosinophils Percent Auto 5.2 % (0-4.4); Hematocrit 42.2 % (42.0-52.0); Hemoglobin 13.4 g/dL (14.0-18.0); Immature Granulocyte Absolute 0.01 K/mm3 (0.00-0.031); Immature Granulocyte Percent A 0.2 % (0-0.5); Lymphocytes Absolute Auto 1.28 K/mm3 (0.9-3.2); Lymphocytes Percent Auto 22.8 % (18.3-44.2); Mean Corpuscular HGB Conc 31.8 g/dl (32-36); Mean Corpuscular Hemoglobin 30.7 pg (26-34); Mean Corpuscular Volume 96.6 fl (80-100); Mean Platelet Volume 11.6 fl (7.4-10.4); Monocytes Absolute Auto 0.6 K/mm3 (0.1-0.6); Monocytes Percent Auto 11.4 % (2.6-8.5); Neutrophils Absolute Auto 3.4 K/mm3 (1.3-6.7); Platelet Count Result 169 k/mm3 (150-375); Red Blood Count 4.37 M/mm3 (4.6-6.20); White Blood Count 5.6 K/mm3 (4.5-10.0)
[2023-01-09 05:09] LABS: Anion Gap 1 mmol/L (8-16); Blood Urea Nitrogen 21 mg/dL (9-20); Calcium 8.9 mg/dL (8.4-10.2); Carbon Dioxide 34 mmol/L (22-30); Chloride 102 mmol/L (98-107); Estimated CRCL calculation 42 ml/min; Estimated Glomerular Filt Rate > 60; Glucose 89 mg/dL (65-110); Potassium 4.8 mmol/L (3.4-5.0); Sodium 137 mmol/L (137-145)
--- NOTE | 2023-01-09 08:35 | PM.IMPN ---
Progress Note: A&P Assessment and Plan (1) Symptomatic bradycardia: Code(s): R00.1 - Bradycardia, unspecified Status: Acute Assessment and Plan: Patient using recumbent bike when his BLE became weak and patient felt lightheaded. HR in the 30's, no previous history of bradycardia or similar symptoms. Extensive cardiac history. -Cardiology consulted - MD Tommy. -Summary of Card Recs EKG in ED showed: atrial fibrillation, RBBB, LAFB, frequent PVCs but no bradycardia, pauses or other significant findings. Review of cardiac monitoring from cardiac rehab at time of even showed: atrial fibrillation, frequent PVCs, NSVT consisting of 3 beats, however, without significant pauses. No urgent/emergent pacemaker needed. Recommended overnight telemetry, TSH level completed (1.01), and if no significant bradyarrhythmia present overnight - discharge with 30 day event monitoring. NPO at midnight in case of procedure if bradyarrhythmia presence, Flessiner to perform if needed. Hold Xarelto. -hold asa for possible procedure. -monitor reviewed at 2044. bradycardia w/irregular rate at 2004, 2030, and 2044. 3 beat run of VTach at 2031. -repeat CBC and BMP in AM (2) Atrial fibrillation: Code(s): I48.91 - Unspecified atrial fibrillation Status: Chronic Assessment and Plan: Currently attending cardiac rehab for reconditioning. See above cards consult and recommendation. -holding Xarelto for possible procedure. -continuous cardiac monitoring. Plan Chronic Conditions -CHF: continue home Lasix 20 mg. Per Cards Note, transthoracic echo was done in office on 01/01/2023. Echo Impression: Normal LV size, moderate-severe LVH, LVEF 60-65%, normal RV size and function, mild biatrial enlargement, mild pulmonary hypertension. -CAD: hold ASA for possible procedure. -HTN: Isosorbide recently increased, continued. continue to monitor BP. -Insomnia: continue nightly Benadryl 25 mg PRN -Continued trimacinalone cream for dry skin, TYL for pain PRN Diet: NPO at midnight DVT Prophylaxis: SCDs, hold Xarelto for possible procedures. Code Status: Full Code Subjective Date/time seen: 01/09/23 08:35 Interval history: No overnight events noted. No chest pain or shortness of breath. No nausea, vomiting or diarrhea. No fevers or chills. Review of Systems Review of Systems: 12 point review of systems was assessed and was negative except as noted in the HPI Exam Narrative: General: No acute distress, alert and oriented per baseline HEENT: Atraumatic, normocephalic, mucous membranes moist CV: Regular rate and rhythm, S1, S2 Lungs: Clear to auscultation bilaterally, no rales or crackles noted, no wheezes, good air entry Abdomen: Soft, nontender, nondistended Extremities: Normal to inspection Skin: No rashes noted, no lesions or wounds seen Psych: Euthymic, normal affect Objective Data Vital Signs Vital Signs: Vital Signs - 24 hr 01/08/23 08:56 01/08/23 10:20 01/08/23 09:01 Temperature Pulse Rate 51 L 47 L 47 L Respiratory Rate 14 19 16 Blood Pressure 127/71 125/73 123/70 Pulse Oximetry 99 99 98 Oxygen Delivery 01/08/23 10:46 01/08/23 11:01 01/08/23 11:02 Temperature Pulse Rate 34 L 49 L 47 L Respiratory Rate 18 18 Blood Pressure 124/71 136/70 Pulse Oximetry 99 99 99 Oxygen Delivery 01/08/23 11:35 01/08/23 11:45 01/08/23 11:46 Temperature Pulse Rate 46 L 44 L 49 L Respiratory Rate 9 L 11 L 14 Blood Pressure 122/73 Pulse Oximetry 98 98 98 Oxygen Delivery 01/08/23 12:03 01/08/23 12:15 01/08/23 12:16 Temperature Pulse Rate 45 L 46 L 42 L Respiratory Rate 12 Blood Pressure 119/78 Pulse Oximetry 98 97 98 Oxygen Delivery 01/08/23 12:30 01/08/23 14:00 01/08/23 16:39 Temperature 97.2 F L Pulse Rate 61 56 L 50 L Respiratory Rate 18 Blood Pressure 136/69 Pulse Oximetry 100 Oxygen Delivery 01/08/23 16:00 01/08/23 1
[2023-01-09] MEDS: FUROSEMIDE 20 MG TABLET PO (09:00)
[2023-01-09] MEDS: CHOLECALCIFEROL 1,000 UNITS TABLET 2000 UNITS PO (09:00)
[2023-01-09] MEDS: ISOSORBIDE MONONITRATE 60 MG TAB.ER.24H PO (09:01)
--- NOTE | 2023-01-09 10:57 | PM.PNCARD ---
Progress Note: A&P Assessment and Plan (1) Bradycardia: Code(s): R00.1 - Bradycardia, unspecified <Ayleen Villela, SAND HAULER-C - Last Filed: 01/09/23 11:22> Status: Acute <Ayleen Villela, SAND HAULER-C - Last Filed: 01/09/23 11:22> (2) Atrial fibrillation: Code(s): I48.91 - Unspecified atrial fibrillation <Ayleen Villela, SAND HAULER-C - Last Filed: 01/09/23 11:22> Status: Chronic <Ayleen Villela, SAND HAULER-C - Last Filed: 01/09/23 11:22> (3) RBBB: Code(s): I45.10 - Unspecified right bundle-branch block <Ayleen Villela, SAND HAULER-C - Last Filed: 01/09/23 11:22> Status: Acute <Ayleen Villela, SAND HAULER-C - Last Filed: 01/09/23 11:22> (4) Bifascicular block: Code(s): I45.2 - Bifascicular block <Ayleen Villela, SAND HAULER-C - Last Filed: 01/09/23 11:22> Status: Acute <Ayleen Villela, SAND HAULER-C - Last Filed: 01/09/23 11:22> Assessment and Plan: We are consulted for bradycardia. Patient was at cardiac rehab yesterday, and while on the bike (after exercising on the bike for about 10 minutes), he felt tired, lightheaded, felt like he was about to pass out. Noted to have slow atrial fibrillation with PVCs with heart rates in the 35-40s. Rapid response called, and patient was sent to the ER. The EKG in the ER shows atrial fibrillation, RBBB, LAFB, frequent PVCs but no bradycardia, pauses or other significant findings. At the time of my evaluation, patient states he is feeling okay. Not having any presyncopal episodes. Heart rate in the 60s at the time of my evaluation. Review of the strips from cardiac rehab show atrial fibrillation, frequent PVCs, NSVT consisting of 3 beats, however, no significant pauses. At this time, patient does not need urgent/emergent pacemaker. It could be that his symptoms while in cardiac rehab were from frequent PVCs. 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 Not on beta leroy therapy due to rate controlled Afib and reported intermittent bradycardia in the past. Given his chronic conduction disease, it is very likely that patient may need a pacemaker at some point in the future. Patient did not have any significant bradyarrhythmias overnight, and has been asymptomatic since his presentation to the hospital. Discussed with the patient and his that there is no indication for a pacemaker at this time. Plan to discharge patient today with a 30 day event monitor and follow up with Dr. Dewitt. <Ayleen Villela APN-Gely - Last Filed: 01/09/23 11:22> We are consulted for bradycardia. Patient was at cardiac rehab yesterday, and while on the bike (after exercising on the bike for about 10 minutes), he felt tired, lightheaded, felt like he was about to pass out. Noted to have slow atrial fibrillation with PVCs with heart rates in the 35-40s. Rapid response called, and patient was sent to the ER. The EKG in the ER shows atrial fibrillation, RBBB, LAFB, frequent PVCs but no bradycardia, pauses or other significant findings. At the time of my evaluation, patient states he is feeling okay. Not having any presyncopal episodes. Heart rate in the 60s at the time of my evaluation. Review of the strips from cardiac rehab show atrial fibrillation, frequent PVCs, NSVT consisting of 3 beats, however, no significant pauses. At this time, patient does not need urgent/emergent pacemaker. It could be that his symptoms while in cardiac rehab were from frequent PVCs. 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 Not on beta leroy therapy due to rate controlled Afib and reported intermittent bradycardia in the past. Given his chronic conduction disease, it is very likely that patient may need a pacemaker at some point in the future. Patient did not have any significant bradyarrhythmias overnight, and has been asymptomatic since his presentation to the hospital. Discussed with the patient an
--- NOTE | 2023-01-09 13:14 | PM.DS ---
DS: Admitting Diagnosis Discharge Date 01/09/23 Admitting Diagnosis Symptomatic bradycardia DS: Discharge Diagnosis Discharge Diagnosis (1) Symptomatic bradycardia: Code(s): R00.1 - Bradycardia, unspecified Status: Acute Assessment and Plan: Patient using recumbent bike when his BLE became weak and patient felt lightheaded. HR in the 30's, no previous history of bradycardia or similar symptoms. Extensive cardiac history. -Cardiology consulted - MD Tommy. -Summary of Card Recs EKG in ED showed: atrial fibrillation, RBBB, LAFB, frequent PVCs but no bradycardia, pauses or other significant findings. Review of cardiac monitoring from cardiac rehab at time of even showed: atrial fibrillation, frequent PVCs, NSVT consisting of 3 beats, however, without significant pauses. No urgent/emergent pacemaker needed. Recommended overnight telemetry, TSH level completed (1.01), and if no significant bradyarrhythmia present overnight - discharge with 30 day event monitoring. NPO at midnight in case of procedure if bradyarrhythmia presence, Flessiner to perform if needed. Hold Xarelto. -hold asa for possible procedure. -monitor reviewed at 2044. bradycardia w/irregular rate at 2004, 2030, and 2044. 3 beat run of VTach at 2031. -repeat CBC and BMP in AM (2) Atrial fibrillation: Code(s): I48.91 - Unspecified atrial fibrillation Status: Chronic Assessment and Plan: Currently attending cardiac rehab for reconditioning. See above cards consult and recommendation. -holding Xarelto for possible procedure. -continuous cardiac monitoring. Plan Chronic Conditions -CHF: continue home Lasix 20 mg. Per Cards Note, transthoracic echo was done in office on 01/01/2023. Echo Impression: Normal LV size, moderate-severe LVH, LVEF 60-65%, normal RV size and function, mild biatrial enlargement, mild pulmonary hypertension. -CAD: hold ASA for possible procedure. -HTN: Isosorbide recently increased, continued. continue to monitor BP. -Insomnia: continue nightly Benadryl 25 mg PRN -Continued trimacinalone cream for dry skin, TYL for pain PRN Diet: NPO at midnight DVT Prophylaxis: SCDs, hold Xarelto for possible procedures. Code Status: Full Code DS: Summary Hospital Course Hospital Course: 82 y/o M with PMH of CHF, A-Fib on Xarelto, CAD, HTN, and DARIUSZ presents here with symptomatic bradycardia. Patient using recumbent bike when his BLE became weak and patient felt lightheaded. HR in the 30's, no previous history of bradycardia or similar symptoms. Extensive cardiac history. -Cardiology consulted - MD Tommy. -Summary of Card Recs EKG in ED showed: atrial fibrillation, RBBB, LAFB, frequent PVCs but no bradycardia, pauses or other significant findings. Review of cardiac monitoring from cardiac rehab at time of even showed: atrial fibrillation, frequent PVCs, NSVT consisting of 3 beats, however, without significant pauses. No urgent/emergent pacemaker needed. Recommended overnight telemetry, TSH level completed (1.01), and if no significant bradyarrhythmia present overnight - discharge with 30 day event monitoring. NPO at midnight in case of procedure if bradyarrhythmia presence, Flessiner to perform if needed. Hold Xarelto. -hold asa for possible procedure. -monitor reviewed at 2044. bradycardia w/irregular rate at 2004, 2030, and 2044. 3 beat run of VTach at 2031. -repeat CBC and BMP in AM Patient did not have any significant bradyarrhythmias overnight, and has been asymptomatic since his presentation to the hospital.? Discussed with the patient and his that there is no indication for a pacemaker at this time.? Plan to discharge patient today with a 30 day event monitor and follow up with Dr. Dewitt.? Please see above and med rec for details. Patient discharged in stable condition with close outpatient follow-up. Time Spent with Patient Time attestation: Total time spent providing and/or coordinating discharge se
--- NOTE | 2023-01-09 15:48 | PC.NURSE ---
On 01/09/23, the student, Samantha [facility], provided care on this patient. I have reviewed the student's work and agree with the findings.
== END 2023-01-09 14:32 | disposition home or self-care (01) ==
LOC: ANHED 10:24 → ANHIMU 11:25
PROVIDERS: Admitting Provider Chiropractor; Emergency Provider Preventive Medicine Aerospace Medicine; PCP Family Medicine; Visit Provider Chiropractor
DX: R00.1 Bradycardia, unspecified (principal); I48.91 Unspecified atrial fibrillation; I45.2 Bifascicular block; R42 Dizziness and giddiness; G47.33 Obstructive sleep apnea (adult) (pediatric); I11.0 Hypertensive heart disease with heart failure; I50.42 Chronic combined systolic (congestive) and diastolic (congestive) heart failure; D50.9 Iron deficiency anemia, unspecified; R77.8 Other specified abnormalities of plasma proteins; R79.89 Other specified abnormal findings of blood chemistry; J44.9 Chronic obstructive pulmonary disease, unspecified; J84.9 Interstitial pulmonary disease, unspecified; F32.A Depression, unspecified; E78.5 Hyperlipidemia, unspecified; I25.10 Atherosclerotic heart disease of native coronary artery without angina pectoris; Z95.5 Presence of coronary angioplasty implant and graft; K21.9 Gastro-esophageal reflux disease without esophagitis; Z87.891 Personal history of nicotine dependence; Z86.718 Personal history of other venous thrombosis and embolism; Z79.01 Long term (current) use of anticoagulants; Z79.52 Long term (current) use of systemic steroids; Z79.899 Other long term (current) drug therapy; Z82.49 Family history of ischemic heart disease and other diseases of the circulatory system; Z83.6 Family history of other diseases of the respiratory system
CPT/HCPCS: 36415; 71045; 80048; 80053; 81003; 83735; 83880; 84443; 84484; 85025; 85610; 85730; 93005; 96374; 99285; A9270; G0378; J0612; J7030

== ENCOUNTER 2023-01-22 07:15 | Outpatient (RCR) | payer SELFPAY ==
[2022-12-12 17:56] VITALS: BP 124/64; PULSE 81; RESP 16; O2SAT 98
== END 2023-01-29 07:41 | disposition home or self-care (01) ==
LOC: ANHCPREHAB 07:15
PROVIDERS: PCP Family Medicine; Visit Provider Internal Medicine Cardiovascular Disease
DX: I48.91 Unspecified atrial fibrillation (principal); I25.10 Atherosclerotic heart disease of native coronary artery without angina pectoris; I27.20 Pulmonary hypertension, unspecified; G47.33 Obstructive sleep apnea (adult) (pediatric)
CPT/HCPCS: 99199

== ENCOUNTER 2023-02-20 09:03 | Outpatient (CLI) | payer MEDICARE, SELFPAY ==
[2023-02-20 18:46] LABS: Alanine Aminotransferase 24 U/L (6-50); Albumin Level 4.3 g/dL (3.5-5.1); Alkaline Phosphatase 77 U/L (38-126); Anion Gap 4 mmol/L (8-16); Aspartate Amino Transferase 44 U/L (17-59); Blood Urea Nitrogen 17 mg/dL (9-20); Calcium 9.2 mg/dL (8.4-10.2); Carbon Dioxide 34 mmol/L (22-30); Chloride 101 mmol/L (98-107); Cholesterol 168 mg/dL (0-200); Estimated Glomerular Filt Rate > 60; Glucose 101 mg/dL (65-110); HDL Direct 89 mg/dL; Potassium 4.5 mmol/L (3.4-5.0); Sodium 139 mmol/L (137-145); Triglycerides 67 mg/dL (<150)
[2023-02-20 19:03] LABS: LDL Cholesterol Direct 54 mg/dL
[2023-02-20 19:09] LABS: Basophils Percent Auto 0.5 % (0.2-1.2); Eosinophils Absolute Auto 0.1 K/mm3 (0-0.3); Eosinophils Percent Auto 2.5 % (0-4.4); Hematocrit 42.6 % (42.0-52.0); Hemoglobin 13.1 g/dL (14.0-18.0); Immature Granulocyte Absolute 0.01 K/mm3 (0.00-0.031); Immature Granulocyte Percent A 0.2 % (0-0.5); Lymphocytes Absolute Auto 1.21 K/mm3 (0.9-3.2); Mean Corpuscular HGB Conc 30.8 g/dl (32-36); Mean Corpuscular Hemoglobin 30.3 pg (26-34); Mean Corpuscular Volume 98.6 fl (80-100); Monocytes Absolute Auto 0.6 K/mm3 (0.1-0.6); Monocytes Percent Auto 11.3 % (2.6-8.5); Neutrophils Absolute Auto 3.5 K/mm3 (1.3-6.7); Neutrophils Percent Auto 63.5 % (45.5-73.1); Platelet Count Result 156 k/mm3 (150-375); Red Blood Count 4.32 M/mm3 (4.6-6.20); Red Cell Distribution Width 14.1 % (11.5-14.5); White Blood Count 5.5 K/mm3 (4.5-10.0)
== END 2023-02-20 09:04 | disposition home or self-care (01) ==
PROVIDERS: PCP Family Medicine; Visit Provider Family Medicine
DX: E78.5 Hyperlipidemia, unspecified (principal); G47.33 Obstructive sleep apnea (adult) (pediatric); I48.91 Unspecified atrial fibrillation; I50.42 Chronic combined systolic (congestive) and diastolic (congestive) heart failure; Z79.899 Other long term (current) drug therapy; I48.0 Paroxysmal atrial fibrillation
CPT/HCPCS: 36415; 80053; 80061; 84443; 85025

== ENCOUNTER 2023-12-08 09:27 | Emergency (ER) | payer MEDICARE, SELFPAY ==
[2023-12-08] VITALS (8 sets, daily range): BP systolic 104–125; BP diastolic 59–70; PULSE 61–73; RESP 15–16; TEMP 36.7–36.8; O2SAT 98–100
--- NOTE | ~2023-12-08 | XR_ITS ---
XR hip LT min 3V w AP pelvis Ordering provider: Karen Shah PA-C History: . pain s/p fall, LEFT HIP LATERAL BRUISING PAIN . Comparison: None. FINDINGS: BONES: No acute fracture or dislocation. HIP JOINT SPACES: Mild osteoarthritic changes of both hips SACROILIAC JOINT SPACES/LUMBAR SPINE: The sacroiliac joint spaces are normal. Mild degenerative jenkins es of the visualized lower lumbar spine. PUBIC SYMPHYSIS: Normal. SOFT TISSUES: Normal. IMPRESSION: No acute osseous abnormality pelvis and left hip. Reviewed, dictated and finalized at location A.
--- NOTE | ~2023-12-08 | CT_ITS ---
EXAMINATION: CTA pelvis DATE: 12/08/2023 11:23 INDICATION: Left hip pain. Injury. TECHNIQUE: Computed tomographic angiography (CTA) of the pelvis was performed with 100 mL Omnipaque-3 50 intravenous contrast. Automated exposure control and iterative reconstruction technique were emplo yed. The dose-length product was 426.06 mGy-cm. Maximum intensity projection 3D-reconstructions of th e aorta and other arteries were constructed by the technologist on a separate workstation. COMPARISON: CT abdomen and pelvis 10/21/2019 FINDINGS: There is a filter in the inferior vena cava. There are no dilated loops of bowel. There are no pathologically enlarged lymph nodes. There is no free intraperitoneal fluid. The prostate is mode rately enlarged. There is no significant stenosis of the pelvic arteries. There is a 6.1 x 4.3 x 11.1 cm subcutaneous hematoma lateral to proximal left femur. There is no active extravasation of contras t. There is lumbar levocurvature and severe spondylosis. No fracture. There is moderate osteoarthriti s of the hips. IMPRESSION: 1. Subcutaneous hematoma lateral to proximal left femur. Reviewed, dictated and finalized at location A.
[2023-12-08 10:29] LABS: Basophils Percent Auto 0.4 % (0.2-1.2); Eosinophils Absolute Auto 0.1 K/mm3 (0-0.3); Eosinophils Percent Auto 1.1 % (0-4.4); Hematocrit 36.7 % (42.0-52.0); Hemoglobin 11.6 g/dL (14.0-18.0); Immature Granulocyte Absolute 0.01 K/mm3 (0.00-0.031); Immature Granulocyte Percent A 0.2 % (0-0.5); Lymphocytes Absolute Auto 0.91 K/mm3 (0.9-3.2); Lymphocytes Percent Auto 16.6 % (18.3-44.2); Mean Corpuscular HGB Conc 31.6 g/dl (32-36); Mean Corpuscular Hemoglobin 30.6 pg (26-34); Mean Corpuscular Volume 96.8 fl (80-100); Mean Platelet Volume 12.3 fl (7.4-10.4); Monocytes Absolute Auto 0.6 K/mm3 (0.1-0.6); Neutrophils Absolute Auto 3.9 K/mm3 (1.3-6.7); Neutrophils Percent Auto 71.7 % (45.5-73.1); Platelet Count Result 148 k/mm3 (150-375); Red Blood Count 3.79 M/mm3 (4.6-6.20); Red Cell Distribution Width 13.6 % (11.5-14.5); White Blood Count 5.5 K/mm3 (4.5-10.0)
[2023-12-08 10:39] LABS: Alanine Aminotransferase 18 U/L (6-50); Albumin Level 4.1 g/dL (3.5-5.1); Alkaline Phosphatase 70 U/L (38-126); Anion Gap 8 mmol/L (4-12); Aspartate Amino Transferase 31 U/L (17-59); Bilirubin,Total 1.7 mg/dL (0.2-1.3); Blood Urea Nitrogen 17 mg/dL (9-20); Calcium 9.1 mg/dL (8.4-10.2); Carbon Dioxide 32 mmol/L (22-30); Chloride 98 mmol/L (98-107); Estimated CRCL calculation 42 ml/min; Estimated Glomerular Filt Rate > 60; Glucose 114 mg/dL (65-110); Sodium 138 mmol/L (137-145)
[2023-12-08 10:46] LABS: INR 2.7; Prothrombin Time 28.7 Seconds (11.1-14.7)
--- NOTE | 2023-12-08 10:48 | ED.LOWEXIN ---
HPI - Extremity Injury (Lower) General Chief Complaint: Extremity Injury, Lower Stated Complaint: LEFT HIP PAIN POST FALL Time Seen by Provider: 12/08/23 09:33 Source: patient Mode of arrival: ambulatory Limitations: no limitations History of Present Illness HPI Narrative: Patient is an 83 y/o male who presents to the ED with report of left hip pain and swelling. Patient reports he fell a few feet off of a ladder on Friday. He landed directly on his left hip. He did not his head or lose consciousness. He has had pain in his left hip since then, but has been ambulatory. He reports since Friday, he has had worsening bruising and swelling to left posterior head. States symptoms did not seem to be improving which prompted his presentation. He denies any other pain or injury. He is on Xarelto due to history of AFib and blood clots. Related Data Home Medications Medication Instructions Recorded Confirmed isosorbide mononitrate 60 mg 60 mg PO DAILY 04/21/19 09/03/23 tablet,extended release 24 hr diphenhydramine 25 1 tablet PO QHS PRN Sleep 08/16/21 09/03/23 mg-acetaminophen 500 mg tablet (Tylenol PM Extra Strength) B Complex 1 tablet BYMOUTH DAILY 12/12/22 09/03/23 cholecalciferol (vitamin D3) 50 50 mcg PO DAILY 12/12/22 09/03/23 mcg (2,000 unit) capsule (Vitamin D3) rivaroxaban 20 mg tablet (Xarelto) 20 mg PO QAM 01/08/23 09/03/23 atorvastatin 10 mg tablet 10 mg PO DAILY 03/03/23 09/03/23 Allergies Allergy/AdvReac Type Severity Reaction Status Date / Time anesthesia--cholinester AdvReac Severe Unknown Uncoded 12/08/23 09:45 deficiency Review of Systems Review of Systems: CONSTITUTIONAL: Denies fever, chills, or sweats. MUSCULOSKELETAL: see NEUROLOGIC: Denies headache, dizziness, numbness, or weakness. All systems reviewed & are unremarkable except as noted in HPI and below PMFSH Past Medical History Medical History Anemia of chronic disease Iron Deficiency Ankle fracture, left Arthritis Atherosclerotic heart disease of [place] coronary artery with other forms of angina pectoris Atrial fibrillation AVM (arteriovenous malformation) brain S/P resection, 1970's. B12 deficiency (Unknown) Basal cell carcinoma (BCC) of face Bilateral cataracts CAD (coronary artery disease) History of mid Left anterior descending stent in the past, RCA stent in 2018. Cholinesterase deficiency Chronic back pain Chronic combined systolic and diastolic congestive heart failure Chronic interstitial lung disease COPD (chronic obstructive pulmonary disease) Depression Diverticulosis DVT (deep venous thrombosis) Erectile dysfunction Esophageal dilatation GERD (gastroesophageal reflux disease) GI bleed Hiatal hernia HTN (hypertension) Hyperlipidemia Ischemic cardiomyopathy Lymphedema DARIUSZ (obstructive sleep apnea) Physical deconditioning PUD (peptic ulcer disease) Right knee DJD Surgical History Surgical History H/O bilateral cataract extraction H/O craniotomy AV malformation repair H/O repair of rotator cuff Bilateral H/O skin graft IVleft anterior foot History of esophagogastroduodenoscopy (EGD) History of open reduction and internal fixation (ORIF) procedure left ankle History of radiofrequency ablation (RFA) procedure for cardiac arrhythmia Hx of cardiac cath Hx of tonsillectomy S/P IVC filter S/P right knee arthroscopy Status post right knee replacement Stented coronary artery X2 Family History Family History Mother Patient's mother is Pneumonia Father Cerebrovascular accident Heart disease Sibling Cancer Cerebrovascular accident Heart disease Other Family history of chronic obstructive pulmonary disease Social History Social History (Reviewed 12/08/23 @ 10:55 by Mayda
[2023-12-08] MEDS: ACETAMINOPHEN 500 MG TABLET 1000 MG PO (12:20)
== END 2023-12-08 12:30 | disposition home or self-care (01) ==
PROVIDERS: Emergency Provider Physician Assistant; PCP Family Medicine
DX: S70.02XA Contusion of left hip, initial encounter (principal); Z79.01 Long term (current) use of anticoagulants; I48.91 Unspecified atrial fibrillation; I25.10 Atherosclerotic heart disease of native coronary artery without angina pectoris; I11.0 Hypertensive heart disease with heart failure; I50.40 Unspecified combined systolic (congestive) and diastolic (congestive) heart failure; J44.9 Chronic obstructive pulmonary disease, unspecified; F32.A Depression, unspecified; K21.9 Gastro-esophageal reflux disease without esophagitis; G47.30 Sleep apnea, unspecified; M19.90 Unspecified osteoarthritis, unspecified site; W11.XXXA Fall on and from ladder, initial encounter
CPT/HCPCS: 36415; 72191; 73502; 80053; 85025; 85610; 85730; 99284; A9270

== ENCOUNTER 2024-06-24 13:26 | Outpatient (CLI) | payer MEDICARE, SELFPAY ==
--- NOTE | ~2024-06-24 | XR_ITS ---
EXAMINATION: XR fl inj knee LT for MR/CT DATE: 06/24/2024 14:30 INDICATION: Internal derangement at the left knee TECHNIQUE: A time-out was performed to verify the patient's name, date of , and procedure to b e performed. The procedure including the risks, benefits, and alternatives was discussed with the pat ient. Risks discussed included bleeding and infection. The patient understood the risks and agreed to proceed. The skin overlying the lateral side of the left knee joint was prepped and draped in usual sterile fashion. Anesthetic was administered with 1% lidocaine subcutaneously. A 22 G needle was a dvanced under fluoroscopic guidance into the left knee joint space deep to the patella. 45 mL of 3:2: 1 mixture of sterile saline:Omnipaque 240:1% lidocaine was injected into the joint space with intra-a rticular administration confirmed with intermittent fluoroscopy. The needle was removed and the entry site was cleaned and dressed. There were no immediate complications. Fluoroscopy exposure time was 0.3 minutes. The total number of images was 8. Total DAP was 0.245 Gycm^2 FINDINGS: Real-time fluoroscopy demonstrates the needle in the left knee joint. IMPRESSION: 1. Successful left knee joint injection of iodinated contrast mixture for subsequent CT are from [facility] h will be dictated separately. Reviewed, dictated and finalized at location A. PHONE ANSWERER IMPRESSION: 1. Successful left knee joint injection of iodinated contrast mixture for subse quent CT are from which will be dictated separately.
--- NOTE | ~2024-06-24 | CT_ITS ---
EXAMINATION: CT knee LT w con DATE: 06/24/2024 14:32 INDICATION: Internal derangement at the left knee TECHNIQUE: Low dose computed tomography (CT) arthrogram of the left knee was performed with intra-art icular contrast but without intravenous contrast. Details of the contrast mixture and joint injection have been dictated separately. Sagittal and coronal reconstructions were performed. Automated exposu re control and iterative reconstruction technique were employed. The dose-length product was 518.26 mGy-cm. COMPARISON: None FINDINGS: Bone alignment is normal. No fracture. Medial compartment: Medial extrusion of the medial meniscal body. Both the body and posterior horn of the medial meniscus are diminutive with irregular margins consistent with likely chronic complex tear and secondary meni scal degeneration. There is a small vertical longitudinal tear along the inner third of the more pres erved anterior horn of the meniscus. Iterative contrast extends into a multilobulated para meniscal c yst which arises from the medial side of the posterior horn and which extends 3.0 cm anteroposteriorl y and 2.8 cm craniocaudally overlying the medial side of the joint space and measuring up to 4-5 mm i n maximal thickness. There is partial thickness chondral loss along the medial tibial plateau as well as the weightbearing medial femoral condyle most severe at the central portion of the condyle where it involves greater than 50% the cartilage thickness. There is additional scattered deep or chondral fissuring on both the medial femoral condyle and anterior medial side of the medial tibial plateau. Lateral compartment: Complex lateral meniscal tear with contrast extending along the linear irregular tear planes contacti ng both the superior and inferior articular surfaces of the anterior horn, body and posterior horn of the lateral meniscus. There is also partial thickness radial tear involving the majority the cross-s ectional area of the meniscus at the medial side of the posterior horn. Small region of deep chondral ulceration along the posterior aspect of the lateral tibial plateau. Additional slightly less severe but still deep chondral ulceration at the juxtaposed central weightbearing lateral femoral condyle. Patellofemoral compartment: Small deep chondral fissure at the medial side of the lateral patellar facet near the apical ridge. S agittal oriented band of partial-thickness chondral ulceration involving greater than 50% of the cart ilage thickness at the mid to inferior aspect of the trochlear groove. Linear extension of minimal amount of contrast along the ligament fibers of the anterior cruciate and posterior cruciate ligaments but without evident discontinuity to suggest tear. Evaluation is howeve r more limited than with MRI. Contrast extends into a moderate-sized Simmons's cyst which measures 6.4 cm craniocaudally and up to 2.5 x 1.2 cm in maximal transaxial dimensions. There is prominent fatty a trophy of the medial head of the gastrocnemius muscle as well as the medial side of the soleus muscle . There are some atherosclerotic calcifications without hemodynamically significant stenosis along th e popliteal artery and smaller branch arteries at the visualized calf. There is prominent chunky calc ification extending along one of the paired popliteal arteries which could represent secondary hetero topic ossification of chronic thrombus. IMPRESSION: 1. Complex medial and lateral meniscal tears, more severe with likely secondary degeneration at the m edial meniscus where there is minimal residual meniscal tissue at the body and posterior horn. 2. Associated 3.0 x 2.8 x 0.5 cm para meniscal cyst underlying the medial margin of the medial compar tment. 3. 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 4. Moderate-sized Simmons's cyst. 5. Prominent fatty atrophy of the medial head of the gastrocnemius muscle and medial side of the sole us muscle. 6. Tiny heterotopic ossification along one of the paired popliteal veins which suggests sequela of ch ronic thrombus. Reviewed, dictated and finalized at location A. TAIN SERVICES MANAGER IMPRESSION: 1. Complex medial and lateral meniscal tears, more severe with likely secondary degeneration at the medial meniscus where there is minimal residual meniscal t issue at the body and posterior horn. 2. Associated 3.0 x 2.8 x 0.5 cm para meniscal cyst underlying the medial gonsalo n of the medial compartment. 3. 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 4. Moderate-sized Simmons's cyst. 5. Prominent fatty atrophy of the medial head of the gastrocnemius muscle and m edial side of the soleus muscle. 6. Tiny heterotopic ossification along one of the paired popliteal veins which suggests sequela of chronic thrombus.
--- OUTSIDE RECORDS SUMMARY | 2024-06-24 13:40 | XMS_ITS | Clinical Summary ---
Author Organization [facility] [place] [address] Address [address] [place] [address] Care Team Providers Care Welder Assistant Name Role Phone Ace Ribera MD Primary Care Provider [phone] Allergies Active Allergy Reactions Criticality Noted Date Comments Cholinesterase Inhibitor(Carbamate) Other (See comments) Low Pseudocholinesteras e deficiency-Pt. reports no known allergies Medications triamcinolone (KENALOG) 0.1 % cream apply by topical route 2 times every day a thin layer to the affected area(s) 0 0 10/10/19 16 Active aspirin 81 mg tablet Take 1 tablet (81 mg total) by mouth every morning Active furosemide (LASIX) 20 mg tablet Take 1 tablet (20 mg total) by mouth daily. 30 tablet 04/02/20 18 Active nitroglycerin (NITROSTAT) 0.4 mg SL tablet 12/25/19 19 Active potassium chloride ER (KLOR-CON) 10 mEq CR tablet Take 1 tablet/capsu le (10 mEq total) by mouth 2 (two) times a day Active vitamin B complex capsule Take 1 capsule by mouth daily Active cholecalciferol (VITAMIN D-3) 4,000 unit capsule Active famotidine (PEPCID) 40 mg tablet Take 1 tablet (40 mg total) by mouth daily 03/03/20 23 Active Xarelto 20 mg tablet TAKE 1 TABLET BY MOUTH EVERY DAY 90 tablet 3 09/22/19 24 Active isosorbide mononitrate ER (IMDUR) 60 mg 24 hr tabletIndicatio ns:Coronary artery disease of [place] artery of [place] heart with stable angina pectoris (HCC) TAKE 1 TABLET BY MOUTH EVERY DAY 90 tablet 1 06/11/19 25 Active atorvastatin (LIPITOR) 10 mg tablet TAKE 1 TABLET BY MOUTH EVERY DAY 90 tablet 1 06/11/19 25 Active atorvastatin (LIPITOR) 10 mg tablet TAKE 1 TABLET BY MOUTH EVERY DAY 90 tablet 1 12/15/19 24 025 Discontinued isosorbide mononitrate ER (IMDUR) 60 mg 24 hr tabletIndicatio ns:Coronary artery disease of [place] artery of [place] heart with stable angina pectoris (HCC) TAKE 1 TABLET BY MOUTH EVERY DAY 90 tablet 1 12/15/19 24 025 Discontinued Active Problems Problem Noted Date Diagnosed Date LVH (left ventricular hypertrophy) 03/19/2024 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 Patient continues to complain of bilateral lower extremity edema with no new ulcerations. Patient is not utilizing compression stockings at this time. Hyperpigmentation noted to the left anterior aspect of his lower extremity. Patient has palpable pulses. Patient also has superficial ulcerations to anterior calf of left lower extremity that is currently being followed by primary care provider. Ulcerations are clean with no concern for infection. Plan: Recommend wearing for compression Stocking 20-30 mmHg. Patient to follow up in 4 weeks for re-evaluation. Syncope and collapse 03/16/2021 Achalasia 06/20/2020 Overview (06/20/2020): Added automatically from request for surgery [id number] PVC (premature ventricular contraction) 06/19/19 PAC (premature atrial contraction) 06/19/2020 RBBB 06/19/2020 Left anterior fascicular block (LAFB) 06/19/2020 AV block, 1st degree 06/19/2020 Pulmonary HTN 10/27/2019 Esophageal dysphagia 03/24/2019 Overview (03/24/2019): Added automatically from request for surgery [id number] Psychophysiologic insomnia 02/08/2019 DARIUSZ (obstructive sleep apnea) 10/08/2018 (HFpEF) heart failure with p reserved ejection fraction ([facility]) 03/31/2018 Assessment & Plan (03/31/2018 11:38 PM [facility]): Pt w/ hx of HFpEF (EF 63% on ) who p/w progressive BRICENO, YEE, unintentional wt gain ~5lbs, +JVD. EKG w/ Afib, complete RBBB, and widened QRS (no prior available for comparison). Pro BNP 6751, Trop neg x 1. CXR w/o e/o pulm edema or effusions. Sx overall c/f acute decompensation of diastolic HF exacerbation likely in s/o recent dietary & medication noncompliance. TTE on w/ EF 63%, mild LVE, mild MR, mod TR, mild pulm HTN,RVSP 45mmHg. At home on metop, lipitor, ASA, lasix 20 PRN. Not on ACEi - s/p 40 IV lasix in ED w/ good UOP - started on lasix 40 IV bid - cont metop 25mg qd - consider starting ACEi - strict I&Os, daily weights, fluid restrict - K>4, Mg >[address] scan 03/31/2018 Assessment & Plan (03/31/2018 11:39 PM [facility]): Recent CTAP on 03/17 w/ interlobular septal thickening in peripheral lung bases suspicious for ILD. Pt w/ 2yr hx of progressive BRICENO and hx of amiodarone for past 2 yrs. DDx for SOB includes AoC HF exacerbation vs ILD vs amiodarone induced lung toxicity. CXR 03/31 w/ minimal bibasilar atelectasis - repeat CTC w/o contrast - pulm c/s Claudication 10/02/2017 SOB (shortness of breath) 05/29/2017 Chest tightness 05/08/2017 Coronary artery disease of n [place]ive artery of [place] heart with stable angina pectoris ([facility]) 10/29/2016 Assessment & Plan (03/31/2018 11:41 PM [facility]): Pt w/ hx of CAD s/p multiple stents. C/o intermittent exertional chest pressure around diaphragm. EKG w/o ischemic changes. Trop neg x1 - Trend troponins - cont lipitor 40, ASA 81 Atrial fibrillation ([facility]) 10/29/2016 Assessment & Plan (04/20/2021 10:30 AM [facility]): Impression:Patient has a history of AFib . He patient reports he is compliant with taking Dual anti-platelet therapy. Plan: Continue Dual anti-platelet therapy. Continue care as per primary care provider /cardiology. Assessment & Plan (03/31/2018 11:39 PM [facility]): Pt w/ hx of chronic Afib s/p CV in . Currently on Xeralto & metop25. Was previously on Amiodarone which was d/c'd after recent CT findings c/f ILD. Rate controlled. EKG w/ Afib & HR 78 - holding Xeralto, started on hep gtt - cont metop 25mg qd - tele Cardiomyopathy 10/29/2016 Hyperlipidemia LDL goal <70 10/29/2016 Assessment & Plan (04/20/2021 10:32 AM [facility]): Impression: Chronic stable hyperlipidemia With control of statin therapy. Plan: Medications reviewed, no changes made. Continue statin therapy as per primary care provider/cardiology. Assessment & Plan (03/31/2018 11:42 PM [facility]): Cont statin HTN (hypertension), benign 10/29/2016 Assessment & Plan (04/20/2021 10:30 AM [facility]): Impression: Chronic stable hypertension, control medications. Blood pressure is stable this office visit. Plan: Medications reviewed, no changes made. Continue by pressure management as per primary care provider/cardiology. Recurrent deep vein thrombosis (DVT) ([facility]) 0 10/29/2016 Assessment & Plan (03/31/2018 11:42 PM [facility]): On Xeralto at home, s/p IVC filter - holding home Xeralto - cont History of subdural hematoma 10/29/2016 Chronic anticoagulation 10/29/2016 Immunizations Immunization Administration Dates Next Due Influenza, Quadrivalent, Hig h Dose, Preservative Free, Intrr 03/04/2020 Influenza, Quadrivalent, Rec ombinant, Egg Free, Preservative Free, Intramuscular 01/20/2019 Influenza, Quadrivalent, Split, Intramuscular Influenza, Trivalent, High D ose, Split, Preservative Free, Intramuscular 01/29/2018 Tdap 02/20/2019 ZOSTER Recombinant 11/10/2018,07/30/2018 Surgical History Surgery Date Site/Laterality Comments TONSILLECTOMY CORONARY ANGIOPLASTY WITH STENT PLACEMENT 2015, 2016 Medical History Medical History Date Comments Coronary artery disease Cerebral AV malformation repair 46-48 yrs. ago A-fib ([facility]) ([facility]) 2015 s/p cardio version 2016, 04/22 Hypertension Hyperlipidemia GERD (gastroesophageal reflux disease) Osteoarthritis DVT (deep venous thrombosis) ([facility]) ([facility]) s/p IVC filter Pseudocholinesterase deficiency DARIUSZ on CPAP Family History Medical History Relation Name Comments Stroke Father Stroke; Cause o f : Stroke Cardiomyopathy Sister 1 Cardiomyopath y; Stroke Sister 2 Stroke; Relation Name Status Comments Father Sister 1 Sister 2 Social History Tobacco Use Types Packs/Day Years Used Date Smoking Tobacco: Former Cigarettes 1 50 1 957 - 2006 Smokeless Tobacco: Former Chew Quit: 2006 Tobacco Cessation:Counseling Given: Not Answered Alcohol Use Standard Drinks/Week Comments No 0 (1 standard drink = 0.6 oz pure alcohol) history of heavy use, quit 2006 Sex and Gender Information Value Date Recorded Sex Assigned at Not on file Legal Sex Male 7:15 PM [facility] Gender Identity Not on file Sexual Orientation Not on file Obstetrics History Last Filed Vital Signs Vital Sign Reading Time Taken Comments Blood Pressure 122/70 03/19/2024 8:59 AM [facility] Pulse 62 03/19/2024 8:59 AM [facility] Temperature 36.8 C (98.3 F) 12/29/2023 10:23 AM CDT Respiratory Rate 16 10/20/2023 4:06 PM CDT Oxygen Saturation 97% 03/19/2024 8:59 AM [facility] Inhaled Oxygen Concentration - - Weight 71.2 kg (157 lb) 03/19/2024 8:59 AM [facility] Height 170.2 cm (5' 7 ) 03/19/2024 8:59 AM [facility] Body Mass Index 24.59 03/19/2024 8:59 AM [facility] Plan of Treatment Health Maintenance Due Date Last Done Comments Depression Screening 1940 Hepatitis B Screening 1958 Pneumococcal vaccine 65+ (1 of 2 - PCV) 1958 Well Visit 65+ 2004 Fall Risk Assessment 07/13/2021 07/13/2020 Influenza Vaccine (#1) 2024 , 01/20/2019, 01/29/2018, Additional history exists DTaP/Tdap/Td Vaccine (2 - Td or Tdap) 02/20/2029 02/20/2019 Zoster Vaccine Completed 11/10/2018, 07/30/2018 Medical Devices Implanted Type Area [employer] Developer Device Identifier Shelf Expiration Date Model / Serial / Lot Right Knee Replacement Right: Knee Insurance [facility] Address: [place] [id number] MEDICARE SOLUTIONS [facility] Address: [address] [address] MEDICARE SOLUTIONS Advance Directives For more information, please contact: [phone] * Full Code (Latest Code Status on File) Date Activated Date Inactivated Comments 07/13/2020 9:38 AM 07/13/2020 4:25 PM * Full Code Date Activated Date Inactivated Comments 05/20/2019 7:55 AM 05/20/2019 2:15 PM * Full Code Date Activated Date Inactivated Comments 06/29/2018 7:54 PM 06/30/2018 3:12 PM * Full Code Date Activated Date Inactivated Comments 03/31/2018 5:50 PM 04/01/2018 6:20 PM Care Teams Welder Assistant Relationship Specialty Start Date End Date Ace Ribera MD PCP - General 08/02/16
--- OUTSIDE RECORDS SUMMARY | 2024-06-24 13:40 | XMS_ITS | Referral Summary ---
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) TAKE [...] 24 hr tabletIndicatio ns:Coronary artery disease of [place] artery of [place] heart with stable angina pectoris (HCC) TAKE 1 TABLET BY MOUTH EVERY DAY 90 tablet 1 12/15/19 24 025 Discontinued Active Problems Problem Noted Date Diagnosed Date LVH (left ventricular hypertrophy) 03/19/2024 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 Assessment & Plan (04/20/2021 10:28 AM ORE SAMPLER): Impression: Patient has a history of bilateral [...] (06/20/2020): Added automatically from request for surgery [id number] PVC (premature ventricular contraction) 06/19/19 PAC (premature atrial contraction) 06/19/2020 RBBB 06/19/2020 Left anterior fascicular block (LAFB) 06/19/2020 AV block, 1st degree 06/19/2020 Pulmonary HTN 10/27/2019 Esophageal dysphagia 03/24/2019 Overview (03/24/2019): Added automatically from request for surgery [id number] Psychophysiologic insomnia 02/08/2019 DARIUSZ (obstructive sleep apnea) 10/08/2018 (HFpEF) 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 C/o intermittent exertional chest pressure around diaphragm. EKG w/o ischemic changes. Trop neg x1 - Trend troponins - cont lipitor 40, ASA 81 Atrial fibrillation ([facility]/HCC) 10/29/2016 Assessment & Plan (04/20/2021 10:30 AM ORE SAMPLER): Impression:Patient has a history of AFib . He patient reports he is compliant with taking Dual anti-platelet therapy. Plan: Continue Dual anti-platelet therapy. Continue care as per primary care provider /cardiology. Assessment & Plan (03/31/2018 11:39 PM ORE SAMPLER): Pt w/ hx of chronic Afib s/p CV in . Currently on Xeralto & metop25. Was previously on Amiodarone which was d/c'd after recent CT findings c/f ILD. Rate controlled. EKG w/ Afib & HR 78 - holding Xeralto, started on hep gtt - cont metop 25mg qd - tele Cardiomyopathy 10/29/2016 Hyperlipidemia LDL goal <70 10/29/2016 Assessment & Plan (04/20/2021 10:32 AM ORE SAMPLER): Impression: Chronic stable hyperlipidemia With control of statin therapy. Plan: Medications reviewed, no changes made. Continue statin therapy as per primary care provider/cardiology. Assessment & Plan (03/31/2018 11:42 PM ORE SAMPLER): Cont statin HTN (hypertension), benign 10/29/2016 Assessment & Plan (04/20/2021 10:30 AM ORE SAMPLER): Impression: Chronic stable hypertension, control medications. Blood pressure is stable this office visit. Plan: Medications reviewed, no changes made. Continue by pressure management as per primary care provider/cardiology. Recurrent deep vein thrombosis (DVT) ([facility]) 0 10/29/2016 Assessment & Plan (03/31/2018 11:42 PM ORE SAMPLER): On Xeralto at home, s/p IVC filter [...] Intramuscular 01/29/2018 Tdap 02/20/2019 ZOSTER Recombinant 11/10/2018,07/30/2018 Social History Tobacco Use Types Packs/Day Years Used Date Smoking Tobacco: Former Cigarettes 1 50 1 957 - 2007 Smokeless Tobacco: Former Chew Quit: 2006 Tobacco Cessation:Counseling Given: Not Answered Alcohol Use Standard Drinks/Week Comments No 0 (1 standard drink = 0.6 oz pure alcohol) history of heavy use, quit 2006 Sex and Gender Information Value Date Recorded Sex Assigned at Not on file Legal Sex Male 7:15 PM ORE SAMPLER Gender Identity Not on file Sexual Orientation Not on file Last Filed Vital Signs Vital Sign Reading Time Taken Comments Blood Pressure 122/70 03/19/2024 8:59 AM ORE SAMPLER Pulse 62 03/19/2024 8:59 AM ORE SAMPLER Temperature 36.8 C (98.3 F) 12/29/2023 10:23 AM CDT Respiratory Rate 16 10/20/2023 4:06 PM CDT Oxygen Saturation 97% 03/19/2024 8:59 AM ORE SAMPLER Inhaled Oxygen Concentration - - Weight 71.2 kg (157 lb) 03/19/2024 8:59 AM ORE SAMPLER Height 170.2 cm (5' 7 ) 03/19/2024 8:59 AM ORE SAMPLER Body Mass Index 24.59 03/19/2024 8:59 AM ORE SAMPLER Plan of Treatment Not on file Medical Devices Implanted Type Area Arcade Technician Device Identifier Shelf Expiration Date Model / Serial / Lot Right Knee Replacement Right: Knee Insurance MEDICARE SOLUTIONS Member Subscriber Plan / Payer (Ef fective 2022-Present) Name:Brandon Mcfarlane Relation to Subscriber:Self Name:Brandon Mcfarlane Payer ID:[id number] (NAIC) Type:UHC MEDICARE Address: [place] [id number] Advance Directives For more information, please contact: [phone] * Full Code (Latest Code Status on File) Date Activated Date Inactivated Comments 07/13/2020 9:38 AM 07/13/2020 4:25 PM * Full Code Date Activated Date Inactivated Comments 05/20/2019 7:55 AM 05/20/2019 2:15 PM * Full Code Date Activated Date Inactivated Comments 06/29/2018 7:54 PM 06/30/2018 3:12 PM * Full Code Date Activated Date Inactivated Comments 03/31/2018 5:50 PM 04/01/2018 6:20 PM Care Teams Stereotype Molder Relationship Specialty Start Date End Date Ace Ribera MD PCP - General 08/02/16
--- OUTSIDE RECORDS SUMMARY | 2024-06-24 13:40 | XMS_ITS | Continuity of Care Document ---
Author Organization [facility] Address [address] [place] [address] Phone Care Team Providers Care Federal Judge Name Role Phone Domi Chadd Unavailable Unavailable Procedures Procedure Date Office/outpatient Visit, Est Eye Exam, New Patient Advance Directives Directive Yes / No Effective Date File Name No Information Encounters Encounter Description Practice Location Reason(s) For Visit Diagnoses Date Provider Providers Copied on Encounter Office/outpat ient Visit, Est [facility], [address], [place], [place], [id number], tel:[phone] [facility] No Information September- 6-200 9 Krishnasamy Chadd. [address], [facility], [place]. tel:[phone] [facility], [address], [place], [place], [id number], tel:[phone] [facility] No Information 2 0-200 9 Krishnasamy Chadd. [address] [place] [address], [place], [address], [place]. tel:[phone] Family History Family Member Type Diagnosis Age At Onset No Information Payers Payer name Insurance type Covered green party ID Authoriza tion(s) No Information Social History Type Description Quantity Date Captured Comments Sex Male Smoking Status No Information Chief Complaint And Reason For Visit No Information Reason For Referral Reason For Referral No Information History Of Present Illness Encounter Date Complaint History Of Prese nt Illness No Information Functional Status Date Functional Assessmen t No Information Instructions Date Instruction Additional Infor mation No Information Assessments Type Assessment Date No Information Patient Care Teams Name Effective Dates (start - stop) Status Members No Information
--- OUTSIDE RECORDS SUMMARY | 2024-06-24 13:40 | XMS_ITS | Encounter Summary ---
Author Organization [facility] Healthcare Address [address] [place] [address] Care Team Providers Care Cost Reduction Engineer Name Role Phone Ace Ribera MD Primary Care Provider [phone] Encounter Details Date Type Department Care Team ([facility] st Contact Info) Description 03/31/2018 Documentation Internal Medicine [place] Social History Tobacco Use Types Packs/Day Years Used Date Smoking Tobacco: Former Cigarettes Q uit: 02/10/2007 Smokeless Tobacco: Never Comments:Smoking History Pac ks/day: 1 Packs Alcohol Use Standard Drinks/Week Comments No 0 (1 standard drink = 0.6 oz pur e alcohol) Sex and Gender Information Value Date Recorded Sex Assigned at Not on file Legal Sex Male 7:15 PM 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 Gender Identity Not on file Sexual Orientation Not on file documented as of this encounter Plan of Treatment Not on file documented as of this encounter Visit Diagnoses Not on filedocumented in this encounter Additional Health Concerns Infection Onset Date Last Indicated Resolved Time COVID: Suspected 11/16/2021 11/16/2021 11/16/2021 4:22 PM CDT Exposure, COVID-19 Comment:Added automatically based on COVID19 lab answers indicating exposure risk 12/03/2021 12/03/2021 12/03/2021 4:03 PM C DT COVID: Suspected 12/03/2021 12/03/2021 12/03/2021 4:03 PM CDT COVID19 12/03/2021 12/03/2021 12/13/2021 3:05 AM CDT COVID: Suspected 11/28/2022 11/28/2022 11/28/2022 3:08 PM CDT COVID: Suspected 10/20/2023 10/20/2023 10/20/2023 9:06 PM CDT documented as of this encounter Care Teams Cost Reduction Engineer Relationship Specialty Start Date End Date Ace Ribera MD PCP - General 08/02/16 documented as of this encounter
== END 2024-06-24 13:27 | disposition home or self-care (01) ==
LOC: ANHIMG 13:29
PROVIDERS: PCP Family Medicine; Visit Provider Orthopaedic Surgery
DX: S83.272A Complex tear of lateral meniscus, current injury, left knee, initial encounter (principal); S83.232A Complex tear of medial meniscus, current injury, left knee, initial encounter; X58.XXXA Exposure to other specified factors, initial encounter; M23.022 Cystic meniscus, posterior horn of medial meniscus, left knee; M17.12 Unilateral primary osteoarthritis, left knee; M94.262 Chondromalacia, left knee; M71.22 Synovial cyst of popliteal space [Baker], left knee; M62.58 Muscle wasting and atrophy, not elsewhere classified, other site; M61.552 Other ossification of muscle, left thigh; M23.90 Unspecified internal derangement of unspecified knee
CPT/HCPCS: 20610; 73701; 77002; Q9966

== ENCOUNTER 2024-08-25 08:05 | Outpatient (CLI) | payer MEDICARE, SELFPAY ==
--- OUTSIDE RECORDS SUMMARY | 2024-08-25 08:17 | XMS_ITS | Continuity of Care Document ---
Author Organization [facility] Address [address] [place] [address] Phone Care Team Providers Care Water Plant Maintenance Mechanic Name Role Phone Domi Chadd Unavailable Unavailable Procedures Procedure Date Office/outpatient Visit, Est Eye Exam, New Patient Advance Directives Directive Yes / No Effective Date File Name No Information Encounters Encounter Description Practice Location Reason(s) For Visit Diagnoses Date Provider Providers Copied on Encounter Office/outpat ient Visit, Est [facility], [address], [place], [place], [id number], tel:[phone] [facility] No Information September- 6-200 9 Krishnasamy Chadd. [address], [facility], [place]. tel:[phone] [facility], [address], [place], [place], [id number], tel:[phone] SEC [facility] No Information 2 0-200 9 Krishnasamy Chadd. [address] [place] [address], [place], [address], [place]. tel:[phone] Family History Family Member Type Diagnosis Age At Onset No Information Payers Payer name Insurance type Covered constitution party ID Authoriza tion(s) No Information Social [...]
--- OUTSIDE RECORDS SUMMARY | 2024-08-25 08:17 | XMS_ITS | CONTINUITY OF CARE DOCUMENT ---
Author Name [email or web address] Address Unknown Organization [facility] Address [address] [address] [place] [address] Phone [phone] Care Team Providers Care Retouching Operator Name Role Phone Nazia LIMA, Jose Francisco Khan Unavailable [phone] LUIS CANTU MD Unavailable [phone] LUIS CANTU MD Unavailable INSURANCE PROVIDERS Payer name Policy type / Coverage type [place] red alliance party ID UHC MEDICARE COMPLETE HMO Other [id number]
--- OUTSIDE RECORDS SUMMARY | 2024-08-25 08:17 | XMS_ITS | Encounter Summary ---
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
--- OUTSIDE RECORDS SUMMARY | 2024-08-25 08:17 | XMS_ITS | Clinical Summary ---
Author Organization [facility] [place] [address] Address [address] [place] [address] Care Team Providers Care Smoke Inspector Name Role Phone Ace Ribera MD Primary Care Provider [phone] Allergies Active Allergy Reactions Criticality Noted Date Comments Cholinesterase Inhibitor(Carbamate) Other (See comments) Low Pseudocholinesteras e deficiency-Pt. reports no known allergies Medications triamcinolone (KENALOG) 0.1 % cream apply by topical route 2 times every day a thin layer to the affected area(s) 0 0 6 Active aspirin 81 mg tablet Take 1 tablet (81 mg total) by mouth every morning Active furosemide (LASIX) 20 mg tablet Take 1 tablet (20 mg total) by mouth daily. 30 tablet 8 Active nitroglycerin (NITROSTAT) 0.4 mg SL tablet 9 Active potassium chloride ER (KLOR-CON) 10 mEq CR tablet Take 1 tablet/capsul e (10 mEq total) by mouth 2 (two) times a day Active vitamin B complex capsule Take 1 capsule by mouth daily Active cholecalciferol (VITAMIN D-3) 4,000 unit capsule Active famotidine (PEPCID) 40 mg tablet Take 1 tablet (40 mg total) by mouth daily 3 Active Xarelto 20 mg tablet TAKE 1 TABLET BY MOUTH EVERY DAY 90 tablet 3 4 Active isosorbide mononitrate ER (IMDUR) 60 mg 24 hr tabletIndication s:Coronary artery disease of [place] artery of [place] heart with stable angina pectoris TAKE 1 TABLET BY MOUTH EVERY DAY 90 tablet 1 5 Active atorvastatin (LIPITOR) 10 mg tablet TAKE 1 TABLET BY MOUTH EVERY DAY 90 tablet 1 5 Active Active Problems Problem Noted Date Diagnosed Date LVH (left ventricular hypertrophy) 03/19/2024 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 Assessment & Plan (04/20/2021 10:28 AM HOOP MAKER): Impression: Patient has a history of bilateral [...] (06/20/2020): Added automatically from request for surgery [id number] PVC (premature ventricular contraction) 06/19/19 21 PAC (premature atrial contraction) 06/19/2020 RBBB 06/19/2020 Left anterior fascicular block (LAFB) 06/19/2020 AV block, 1st degree 06/19/2020 Pulmonary HTN 10/27/2019 Esophageal dysphagia 03/24/2019 Overview (03/24/2019): Added automatically from request for surgery [id number] Psychophysiologic insomnia 02/08/2019 DARIUSZ (obstructive sleep apnea) 10/08/2018 (HFpEF) heart failure with preserved ejection fr action 03/31/2018 Assessment & Plan (03/31/2018 11:38 PM HOOP MAKER): Pt w/ hx of HFpEF (EF 63% [...] 03/31/2018 Assessment & Plan (03/31/2018 11:39 PM HOOP MAKER): Recent CTAP on 03/17 w/ interlobular septal [...] artery disease of n ative artery of [place] heart with stable angina pectoris ([facility]) 10/29/2016 Assessment & Plan (03/31/2018 11:41 PM HOOP MAKER): Pt w/ hx of CAD s/p multiple stents. C/o intermittent exertional chest pressure around diaphragm. EKG w/o ischemic changes. Trop neg x1 - Trend troponins - cont lipitor 40, ASA 81 Atrial fibrillation 10/29/2016 Assessment & Plan (04/20/2021 10:30 AM HOOP MAKER): Impression:Patient has a history of AFib . He patient reports he is compliant with taking Dual anti-platelet therapy. Plan: Continue Dual anti-platelet therapy. Continue care as per primary care provider /cardiology. Assessment & Plan (03/31/2018 11:39 PM HOOP MAKER): Pt w/ hx of chronic Afib s/p CV in . Currently on Xeralto & metop25. Was previously on Amiodarone which was d/c'd after recent CT findings c/f ILD. Rate controlled. EKG w/ Afib & HR 78 - holding Xeralto, started on hep gtt - cont metop 25mg qd - tele Cardiomyopathy 10/29/2016 Hyperlipidemia LDL goal <70 10/29/2016 Assessment & Plan (04/20/2021 10:32 AM HOOP MAKER): Impression: Chronic stable hyperlipidemia With control of statin therapy. Plan: Medications reviewed, no changes made. Continue statin therapy as per primary care provider/cardiology. Assessment & Plan (03/31/2018 11:42 PM HOOP MAKER): Cont statin HTN (hypertension), benign 10/29/2016 Assessment & Plan (04/20/2021 10:30 AM HOOP MAKER): Impression: Chronic stable hypertension, control medications. Blood pressure is stable this office visit. Plan: Medications reviewed, no changes made. Continue by pressure management as per primary care provider/cardiology. 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 ago A-fib ([facility]) 2016 s/p cardioversio n 2016, 04/22 Hypertension Hyperlipidemia GERD (gastroesophageal reflux disease) Osteoarthritis DVT (deep venous thrombosis) ([facility]) s/p IVC filter Pseudocholinesterase deficiency [...] on file Legal Sex Male 7:15 PM HOOP MAKER Gender Identity Not on file Sexual Orientation Not on file Obstetrics History Last Filed Vital Signs Vital Sign Reading Time Taken Comments Blood Pressure 122/70 03/19/2024 8:59 AM HOOP MAKER Pulse 62 03/19/2024 8:59 AM HOOP MAKER Temperature 36.8 C (98.3 F) 12/29/2023 10:23 AM CDT Respiratory Rate 16 10/20/2023 4:06 PM CDT Oxygen Saturation 97% 03/19/2024 8:59 AM HOOP MAKER Inhaled Oxygen Concentration - - Weight 71.2 kg (157 lb) 03/19/2024 8:59 AM HOOP MAKER Height 170.2 cm (5' 7 ) 03/19/2024 8:59 AM HOOP MAKER Body Mass Index 24.59 03/19/2024 8:59 AM HOOP MAKER Plan of Treatment Health Maintenance Due Date Last Done Comments Depression Screening 1940 Hepatitis B Screening 1957 Pneumococcal vaccine 65+ (1 of 2 - PCV) 1958 Well Visit 65+ 2004 Fall Risk Assessment 07/13/2021 07/13/2020 Influenza Vaccine (Season Ended) 2025 03/04/2020, 01/20/2019, 01/29/2018, Additional history exists DTaP/Tdap/Td Vaccine (2 - Td or Tdap) 02/20/2029 02/20/2019 Zoster Vaccine Completed 11/10/2018, 07/30/2018 Medical Devices Implanted Type Area Teacher'S Assistant Device Identifier Shelf Expiration Date Model / Serial / Lot Right Knee Replacement Right: Knee Insurance Advance Directives For more information, please contact: [phone] * Full Code (Latest Code Status on File) Date Activated Date Inactivated Comments 07/13/2020 9:38 AM 07/13/2020 4:25 PM * Full Code Date Activated Date Inactivated Comments 05/20/2019 7:55 AM 05/20/2019 2:15 PM * Full Code Date Activated Date Inactivated Comments 06/29/2018 7:54 PM 06/30/2018 3:12 PM * Full Code Date Activated Date Inactivated Comments 03/31/2018 5:50 PM 04/01/2018 6:20 PM Care Teams Smoke Inspector Relationship Specialty Start Date End Date Ace Ribera MD PCP - General 08/02/16
--- OUTSIDE RECORDS SUMMARY | 2024-08-25 08:17 | XMS_ITS | Referral Summary ---
Author Organization [facility] [place] [address] Address [address] [place] [address] Care Team Providers Care Business Representative Name Role Phone Ace Ribera MD Primary Care Provider [phone] Allergies Active Allergy Reactions Criticality Noted Date [...] 24 hr tabletIndication s:Coronary artery disease of [place] artery of [place] heart with stable angina pectoris TAKE 1 TABLET BY MOUTH EVERY DAY 90 tablet 1 5 Active atorvastatin (LIPITOR) 10 mg tablet TAKE 1 TABLET BY MOUTH EVERY DAY 90 tablet 1 5 Active Active Problems Problem Noted Date Diagnosed Date LVH (left ventricular hypertrophy) 03/19/2024 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 Assessment & Plan (04/20/2021 10:28 AM DIRECTOR RECORDS MANAGEMENT): Impression: Patient has a history of bilateral [...] (06/20/2020): Added automatically from request for surgery [id number] PVC (premature ventricular contraction) 06/19/19 21 PAC (premature atrial contraction) 06/19/2020 RBBB 06/19/2020 Left anterior fascicular block (LAFB) 06/19/2020 AV block, 1st degree 06/19/2020 Pulmonary HTN 10/27/2019 Esophageal dysphagia 03/24/2019 Overview (03/24/2019): Added automatically from request for surgery [id number] Psychophysiologic insomnia 02/08/2019 DARIUSZ (obstructive sleep apnea) 10/08/2018 (HFpEF) heart failure with preserved ejection fr action 03/31/2018 Assessment & Plan (03/31/2018 11:38 PM DIRECTOR RECORDS MANAGEMENT): Pt w/ hx of HFpEF (EF 63% [...] 03/31/2018 Assessment & Plan (03/31/2018 11:39 PM DIRECTOR RECORDS MANAGEMENT): Recent CTAP on 03/17 w/ interlobular septal [...] artery disease of n ative artery of [place] heart with stable angina pectoris ([facility]) 10/29/2016 Assessment & Plan (03/31/2018 11:41 PM DIRECTOR RECORDS MANAGEMENT): Pt w/ hx of CAD s/p multiple stents. C/o intermittent exertional chest pressure around diaphragm. EKG w/o ischemic changes. Trop neg x1 - Trend troponins - cont lipitor 40, ASA 81 Atrial fibrillation 10/29/2016 Assessment & Plan (04/20/2021 10:30 AM DIRECTOR RECORDS MANAGEMENT): Impression:Patient has a history of AFib . He patient reports he is compliant with taking Dual anti-platelet therapy. Plan: Continue Dual anti-platelet therapy. Continue care as per primary care provider /cardiology. Assessment & Plan (03/31/2018 11:39 PM DIRECTOR RECORDS MANAGEMENT): Pt w/ hx of chronic Afib s/p CV in . Currently on Xeralto & metop25. Was previously on Amiodarone which was d/c'd after recent CT findings c/f ILD. Rate controlled. EKG w/ Afib & HR 78 - holding Xeralto, started on hep gtt - cont metop 25mg qd - tele Cardiomyopathy 10/29/2016 Hyperlipidemia LDL goal <70 10/29/2016 Assessment & Plan (04/20/2021 10:32 AM DIRECTOR RECORDS MANAGEMENT): Impression: Chronic stable hyperlipidemia With control of statin therapy. Plan: Medications reviewed, no changes made. Continue statin therapy as per primary care provider/cardiology. Assessment & Plan (03/31/2018 11:42 PM DIRECTOR RECORDS MANAGEMENT): Cont statin HTN (hypertension), benign 10/29/2016 Assessment & Plan (04/20/2021 10:30 AM DIRECTOR RECORDS MANAGEMENT): Impression: Chronic stable hypertension, control medications. Blood pressure is stable this office visit. Plan: Medications reviewed, no changes made. Continue by pressure management as per primary care provider/cardiology. 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 Assessment & Plan (03/31/2018 11:42 PM DIRECTOR RECORDS MANAGEMENT): On Xeralto at home, s/p IVC filter [...] on file Legal Sex Male 7:15 PM DIRECTOR RECORDS MANAGEMENT Gender Identity Not on file Sexual Orientation Not on file Last Filed Vital Signs Vital Sign Reading Time Taken Comments Blood Pressure 122/70 03/19/2024 8:59 AM DIRECTOR RECORDS MANAGEMENT Pulse 62 03/19/2024 8:59 AM DIRECTOR RECORDS MANAGEMENT Temperature 36.8 C (98.3 F) 12/29/2023 10:23 AM CDT Respiratory Rate 16 10/20/2023 4:06 PM CDT Oxygen Saturation 97% 03/19/2024 8:59 AM DIRECTOR RECORDS MANAGEMENT Inhaled Oxygen Concentration - - Weight 71.2 kg (157 lb) 03/19/2024 8:59 AM DIRECTOR RECORDS MANAGEMENT Height 170.2 cm (5' 7 ) 03/19/2024 8:59 AM DIRECTOR RECORDS MANAGEMENT Body Mass Index 24.59 03/19/2024 8:59 AM DIRECTOR RECORDS MANAGEMENT Plan of Treatment Not on file Medical Devices Implanted Type Area Mustanger Device Identifier Shelf Expiration Date Model / Serial / Lot Right Knee Replacement Right: Knee Insurance [employer] MEDICARE ADVANTAGE [facility] MEDICARE Address: [facility] [address] [place] [address] [facility] MEDICARE ADVANTAGE [employer] MEDICARE ADVANTAGE Advance Directives For more information, please contact: [phone] * Full Code (Latest Code Status on File) Date Activated Date Inactivated Comments 07/13/2020 9:38 AM 07/13/2020 4:25 PM * Full Code Date Activated Date Inactivated Comments 05/20/2019 7:55 AM 05/20/2019 2:15 PM * Full Code Date Activated Date Inactivated Comments 06/29/2018 7:54 PM 06/30/2018 3:12 PM * Full Code Date Activated Date Inactivated Comments 03/31/2018 5:50 PM 04/01/2018 6:20 PM Care Teams Business Representative Relationship Specialty Start Date End Date Ace Ribera MD PCP - General 08/02/16
[2024-08-25 19:59] LABS: Hematocrit 42.3 % (42.0-52.0); Hemoglobin 12.6 g/dL (14.0-18.0); Mean Corpuscular HGB Conc 29.8 g/dl (32-36); Mean Corpuscular Hemoglobin 29.2 pg (26-34); Mean Corpuscular Volume 98.1 fl (80-100); Mean Platelet Volume 12.7 fl (7.4-10.4); Platelet Count Result 156 k/mm3 (150-375); Red Blood Count 4.31 M/mm3 (4.6-6.20); Red Cell Distribution Width 15.4 % (11.5-14.5); White Blood Count 5.2 K/mm3 (4.5-10.0)
[2024-08-25 21:18] LABS: Alanine Aminotransferase 20 U/L (6-50); Alkaline Phosphatase 75 U/L (38-126); Anion Gap 5 mmol/L (4-12); Aspartate Amino Transferase 57 U/L (17-59); Bilirubin,Total 1.1 mg/dL (0.2-1.3); Blood Urea Nitrogen 18 mg/dL (9-20); Calcium 9.3 mg/dL (8.4-10.2); Carbon Dioxide 32 mmol/L (22-30); Chloride 103 mmol/L (98-107); Cholesterol 179 mg/dL (0-200); Estimated Glomerular Filt Rate > 60; Glucose 75 mg/dL (65-110); HDL Direct 88 mg/dL; Potassium 4.1 mmol/L (3.4-5.0); Sodium 140 mmol/L (137-145); Triglycerides 68 mg/dL (<150)
[2024-08-25 21:20] LABS: Vitamin D 25 Hydroxy 41.2 ng/mL
[2024-08-25 21:29] LABS: LDL Cholesterol Direct 52 mg/dL
== END 2024-08-25 08:06 | disposition home or self-care (01) ==
LOC: ANHGOSHLAB 08:06
PROVIDERS: PCP Family Medicine; Visit Provider Family Medicine
DX: B35.1 Tinea unguium (principal); Z79.899 Other long term (current) drug therapy
CPT/HCPCS: 36415; 80053; 80061; 82306; 84443; 85027